=== PATIENT | female | born 1970 | race Caucasian/White ===

== ENCOUNTER 2024-02-04 19:25 | Emergency (ER) | payer BC, SELFPAY ==
[2024-02-04 19:26] VITALS: BP 136/101; PULSE 120; RESP 18; TEMP 37.1; O2SAT 98; BMI 27.4
--- NOTE | 2024-02-04 19:34 | ED_ITS ---
<Statement entered by Didi Wang MD - 02/04/24 22:41> I was consulted by the BRONSON, and we discussed the complexity of the problems being addressed. I approved the treatment and management plan for this patient's care in the emergency department, thus performing a substantive portion of the medical decision making. Didi Wang MD, SHAHBAZ, FACEP Discharge Plan Disposition Patient Disposition: Home, Self-Care Condition: Good Referrals Follow up/Referrals: Provider,Referral, [Primary Care Provider] - See instructions Activity Restrictions/Add. Instructions Additional Instructions/Restrictions: Please take Pepcid twice a day as needed for symptoms. Please follow-up closely with your primary care and call to make an appointment in the a.m. Return to the emergency department as needed for any worsening or change in your symptoms. Clinical Impressions Clinical Impression: Abdominal pain, acute, epigastric Instructions Patient Instructions: DI for Acute Abdominal Pain Discharge ED Provider: Didi Wang General Adult HPI General Chief complaint: Abdominal Pain Stated complaint: diarrhea, abd pain Time Seen by Provider: 02/04/24 19:33 History of Present Illness HPI narrative: Patient presents with 48 hours of acute epigastric abdominal pain. Patient denies vomiting fever chills hemoptysis hematochezia melena hematemesis hematuria chest pain or shortness of breath. Patient denies difficulty tolerating or taking p.o. but reports decreased appetite. 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 Patient is also had a cholecystectomy and a total abdominal hysterectomy. Related Data Allergies Allergy/AdvReac Type Severity Reaction Status Date / Time No Known Allergies Allergy Verified 02/04/24 19:49 [facility] Disclaimer: The information contained in this section may have been updated after the patient was seen, as this information can be updated by other users. Social History Smoking Status: Current every day smoker alcohol intake: never current occupational status: employed Travel in the last 8 weeks: Inside the [place] ROS Obtained: Yes Systems reviewed as appropriate & no additional complaints except as documented Physical Exam General General appearance: alert and in no apparent distress Eye Eye exam: Present normal appearance, PERRL and EOMI; Absent scleral icterus ENT ENT exam: Present normal exam and mucous membranes moist Chest Chest inspection: Present normal inspection and symmetric chest wall rise Respiratory Respiratory exam: Present normal lung sounds bilaterally; Absent respiratory distress or accessory muscle use Cardiovascular Cardiovascular exam: Present normal rhythm, tachycardia, normal heart sounds, +S1 and +S2 Abdominal Exam Abdominal exam: Present soft, tenderness and normal bowel sounds; Absent guarding, rebound or rigidity Abdominal tenderness: Present epigastrium Extremities Exam Extremities exam: Present normal inspection and full ROM Back Exam Back exam: Present normal inspection and full ROM Neurological Exam Neurological exam: Present alert and oriented X3 Psychiatric Psychiatric exam: Present normal affect and normal mood Skin Skin exam: Present warm, dry and normal color Medical Decision Making Medical Records Medical records reviewed: Yes I reviewed the patient's medical records. Carlos Inquiry Pt receiving controlled substance: No Vital Signs: 02/04/24 19:26 Temperature 98.7 F Temperature Source Oral Pulse Rate [Left] 120 H Respiratory Rate 18 Blood Pressure [Right Arm] 136/101 H Blood Pressure Mean [Right Arm] 112 Blood Pressure Source [Right Arm] Automatic Cuff Blood Pressure Position [Right Arm] Sitting 02 Sat by Pulse Oximetry 98 Oxygen Delivery Method Room Air Lab Data Lab results reviewed: Yes I reviewed the patient's lab results. Lab Results 02/04/24 19:35: WBC 5.9, RBC 4.90, Hgb 14.2, Hct 43.4, MCV 88.5, MCH 29.1, MCHC 32.9, RDW 13.5, Plt Count 141 L, MPV 10.6 H, Neut % (Auto) 41.0, Lymph % (Auto) 54.6 H, [place] % (Auto) 3.9, Eos % (Auto) 0.5, Baso % (Auto) 6.5 H, Neut # (Auto) 2.4, Lymph # (Auto) 3.2, [place] # (Auto) 0.2, Eos # (Auto) 0.0, Baso # (Auto) 0.4 H, Total Counted 100, Neutrophils % (Manual) 42, Lymphocytes % (Manual) 49, Atypical Lymphs % 8.0, Monocytes % (Manual) 1 L, Platelet Estimate Slight decrease, RBC Morphology Normal, PT 10.9, INR 1.01, Sodium 136, Potassium 4.4, Chloride 104, Carbon Dioxide 27, Anion Gap 9.4, BUN 10, Creatinine 0.80, Estimated Creat Clear 100, Estimated GFR 75, Est GFR ( Amer) 91, Glucose 105 H, Calcium 9.9, Magnesium 2.1, Total Bilirubin 0.8, AST 51 H, ALT 43, Alkaline Phosphatase 107, Total Protein 7.1, Albumin 4.0, Globulin 3.1, Albumin/Globulin Ratio 1.3, Lipase 144 02/04/24 19:35 02/04/24 19:35 Orders (Tests/Meds): ED MEDICATIONS Generic Name Dose Route Start Last Admin Trade Name Freq PRN Reason Stop Dose Admin Sodium Chloride 10 ml 02/04/24 20:22 02/04/24 20:24 Sodium Chloride 0.9% 10ml Syr (Rad Only) IV 03/05/24 20:21 10 ml NEEDED PRN Administration Maintain IV Site Discontinued Medications Generic Name Dose Route Start Last Admin Trade Name Freq PRN Reason Stop Dose Admin Acetaminophen 1,000 mg 02/04/24 19:45 02/04/24 19:52 Acetaminophen 1,000mg/100ml Vial IV 02/04/24 19:46 1,000 mg ONCE ONE Administration Belladonna Alkaloids 60 ml 02/04/24 20:39 02/04/24 20:50 Belladonna Alkaloids 60 Ml Ml PO 02/04/24 20:40 60 ml ONCE ONE Administration Lactated Ringer's 1,000 mls @ 999 mls/hr 02/04/24 19:45 02/04/24 19:52 Lactated Ringer's 1000 Ml Bag IV 02/04/24 20:45 999 mls/hr .Q1H1M ONE Administration Iopamidol 75 ml 02/04/24 20:22 02/04/24 20:24 Iopamidol-370 (76%);100ml Bottle IV 02/04/24 20:23 75 ml ONCE ONE Administration Ketorolac Tromethamine 15 mg 02/04/24 19:45 02/04/24 19:52 Ketorolac 30mg/Ml Vial IV 02/04/24 19:46 15 mg ONCE ONE Administration ORDERS Category Date Time Status CT abdomen pelvis w con Stat Cat Scan 02/04/24 19:45 Completed CBC w/Auto Diff [Complete Blood Count Auto Diff] Stat Lab 02/04/24 19:35 Completed CMP [Comprehensive Metabolic Panel] Stat Lab 02/04/24 19:35 Completed INR [Prothrombin Time INR] Stat Lab 02/04/24 19:35 Completed Lactic Acid Stat Lab 02/04/24 19:46 Ordered Lipase Stat Lab 02/04/24 19:35 Completed Magnesium Stat Lab 02/04/24 19:35 Completed Medical Decision Narrative: In summary patient is a 84-year-old female who presents to the emergency department for evaluation of acute epigastric abdominal pain. Patient is normotensive tachycardic satting at 98% on room air upon arrival, and afebrile. Physical exam is remarkable for acute exquisite epigastric abdominal pain to palpation without any palpable masses. Patient has normal active bowel sounds. Differential diagnosis includes ulcer versus GERD versus obstruction versus acute pancreatitis [place]. Initial workup will be conducted with hematologic labs CT scan abdomen pelvis. Initial interventions include Toradol Tylenol and fluid bolus. Initial workup reviewed by me shows that her hematologic labs are completely normal including a normal white count with no shift and negative/normal lipase and the remainder of her labs were nonactionable. My informal review of her CT scan abdomen pelvis with IV contrast shows no acute processes including stomach thickening bowel thickening or free air with radiologist read pending. Upon repeat evaluation patient reports moderate improvement after Toradol Tylenol crystalloid bolus GI cocktail and immediate release 1 dose of oxycodone.. Given this via shared decision making I discussed with the patient about her ability for close follow-up as an outpatient. Patient verbalized that she does have the ability to follow-up closely both locally and her home-based [place]. She was agreeable for that option and ultimately we decided for her to be discharged with her to continue taking [id number] Pepcid. Critical Care Critical Care Time Critical Care Time: No
--- NOTE | 2024-02-04 19:45 | CT_ITS ---
PROCEDURE INFORMATION: Exam: CT Abdomen And Pelvis With Contrast Exam date and time: 02/04/2024 8:08 PM Age: 54 years old Clinical indication: Abdominal pain; Epigastric; Additional info: Acute epigastric abdominal pain TECHNIQUE: Imaging protocol: Computed tomography of the abdomen and pelvis with contrast. Radiation optimization: All CT scans at this facility use at least one of these dose optimization techniques: automated exposure control; mA and/or kV adjustment per patient size (includes targeted exams where dose is matched to clinical indication); or iterative reconstruction. Contrast material: ISOVUE; Contrast volume: 75 ml; Contrast route: IV; COMPARISON: No relevant prior studies available. FINDINGS: Diaphragm: Small hiatal hernia. Liver: Hepatomegaly. No mass. Gallbladder and bile ducts: Cholecystectomy. Pancreas: Normal. No ductal dilation. Spleen: Splenomegaly. Adrenal glands: Normal. No mass. Kidneys and ureters: Normal. No hydronephrosis. Stomach and bowel: Total colectomy. No obstruction. No mucosal thickening. Appendix: Surgically absent. Intraperitoneal space: Unremarkable. No free air. No significant fluid collection. Vasculature: Mild atherosclerosis. No abdominal aortic aneurysm. Lymph nodes: Unremarkable. No enlarged lymph nodes. Urinary bladder: Unremarkable as visualized. Reproductive: Hysterectomy. Bones/joints: Mild levoconvex curvature of the lumbar spine. Degenerative changes. No acute fracture. Soft tissues: Unremarkable. IMPRESSION: No acute findings.
[2024-02-04] MEDS: ACETAMINOPHEN 1,000MG/100ML VIAL 1000 MG IV (19:52)
[2024-02-04] MEDS: LACTATED RINGERS 1000ML 1,000 ML 999 ML IV (19:52)
[2024-02-04] MEDS: KETOROLAC 30MG/ML VIAL 15 MG IV (19:52)
[2024-02-04 19:53] LABS: Basophils # 0.4 K/mm3 (0-0.2); Basophils % 6.5 % (0.1-2.0); Eosinophils % 0.5 % (0.1-12.0); Hematocrit 43.4 % (37.0-47.0); Hemoglobin 14.2 g/dL (12.2-16.2); Lymphocytes # 3.2 K/mm3 (0.7-4.5); Lymphocytes % 54.6 % (10-50); Mean Corpuscular HGB Conc 32.9 g/dL (31.8-35.4); Mean Corpuscular Hemoglobin 29.1 pg (27.0-31.2); Mean Corpuscular Volume 88.5 fl (81-99); Mean Platelet Volume 10.6 fl (7.4-10.4); Monocytes # 0.2 K/mm3 (0.1-1.0); Monocytes % 3.9 % (1.7-9.3); Neutrophils # 2.4 K/mm3 (1.8-7.8); Platelet Count 141 K/mm3 (142-424); Red Cell Distribution Width 13.5 % (11.5-17.5); White Blood Count 5.9 K/mm3 (4.8-10.8)
[2024-02-04 19:54] LABS: Chloride 104 mmol/L (98-107); Potassium 4.4 mmoL/L (3.5-5.1); Sodium 136 mmol/L (136-145)
[2024-02-04 19:56] LABS: MANUAL DIFFERENTIAL MANUAL DIFFERENTIAL (MANUAL DIFF)
[2024-02-04 19:57] LABS: Alanine Aminotransferase 43 U/L (12-78); Albumin/Globulin Ratio 1.3 (1.1-1.8); Alkaline Phosphatase 107 U/L (38-126); Anion Gap 9.4 mEq/L (5-15); Aspartate Amino Transferase 51 U/L (14-36); Bilirubin,Total 0.8 mg/dl (0.2-1.3); Blood Urea Nitrogen 10 mg/dl (7-17); Calcium 9.9 mg/dl (8.4-10.2); Carbon Dioxide 27 mmol/L (22.0-30.0); Creatinine Clearance Estimated 100 mL/min (50-200); Estimated Glomerular Filt Rate 75 ml/min (>60); GFR (African American) 91 ML/MIN (>60); Globulin 3.1 g/dL (1.3-3.2); Glucose 105 mg/dl (74-100); Lipase 144 U/L (23-300); Total Protein,Serum 7.1 g/dl (6.3-8.2)
[2024-02-04 19:58] LABS: Magnesium 2.1 mg/dl (1.6-2.3)
[2024-02-04 19:59] LABS: INR 1.01 (0.9-1.1); Prothrombin Time 10.9 seconds (10.1-12.5)
[2024-02-04] MEDS: IOPAMIDOL-370 (76%);100ML BOTTLE 75 ML IV (20:24)
[2024-02-04] MEDS: SODIUM CHLORIDE 0.9% 10ML SYR (RAD ONLY) 10 ML IV (20:24)
[2024-02-04 20:43] LABS: Lymphocytes % 49 % (10-50); Monocytes % 1 % (2-9); Neutrophils % 42 % (42-76); Platelet Estimate Slight Decrease; RBC Morphology Normal; Total Cells Counted 100
[2024-02-04] MEDS: BELLADONNA ALKALOIDS 60 ML ML PO (20:50)
[2024-02-04 21:21] VITALS: BP 137/81; PULSE 97; RESP 18; TEMP 37.1; O2SAT 98
== END 2024-02-04 21:22 | disposition home or self-care (01) ==
PROVIDERS: Physician Assistant; Emergency Provider Student in an Organized Health Care Education/Training Program
DX: R10.13 Epigastric pain (principal); F17.210 Nicotine dependence, cigarettes, uncomplicated
CPT/HCPCS: 74177; 80053; 83690; 83735; 85007; 85025; 85610; 96361; 96374; 96375; 99284; J0131; Q9967

== ENCOUNTER 2025-03-10 22:04 | Emergency (ER) | payer BC, SELFPAY ==
--- OUTSIDE RECORDS SUMMARY | 2025-03-10 22:13 | XMS_ITS | Data Portability ---
Author Organization [place] - [facility], [facility] Address [address] 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 Active problems, PMH, Surgical History, Family History, Social History, Behavioral Health, Current Meds, and Allergies were reviewed and updated as clinically indicated. Discussed risk factors and provided referrals to educational and counseling services as appropriate. Not available 05/15/2024 09:14:13 Plan of Treatment Reminders Order Date Submit Date Provider Last Modified By Organization Details Last Modified Time Details Appointments EXAM ANNUAL, W/FASTING LABS-30 2024 08:15A Alexi MCRAE, DO Not available Not available Not available Lab general health panel 2023 024 [facility], [address], [address], [place], [address], 05/15/2024 14:19:15 lipid panel, serum 2023 024 [facility], [address], [address], [place], [address], 05/15/2024 14:56:59 urinalysi s, dipstick 2023 024 [facility], [address] [facility], [address], [place], [address], 05/15/2024 10:49:32 vitamin D, 25-hydrox y, total, serum 2023 024 [facility], [address], [address], [place], [address], 05/15/2024 14:57:18 T4, free, serum 2023 024 [facility], [address], [address], [place], [address], 05/15/2024 14:57:08 gamma-glu tamyl transfera se (ggt), serum 2023 024 [facility], [address], [address], [place], [address], 05/15/2024 14:57:26 C reactive protein, QN, serum or plasma 2023 024 [facility], [address], [address], [place], [address], 05/15/2024 14:57:32 ferritin, serum or plasma 2023 024 [facility], [address], [address], [place], [address], 05/15/2024 14:57:41 vitamin B12, quant, blood 2023 024 [facility], [address], [address], [place], [address], 05/15/2024 14:57:12 CMP, serum or plasma 2023 024 [facility], [address], [address], [place], [address], 02/12/2024 14:20:49 CBC w/ auto diff 2023 024 [facility], [address], [address], [place], [address], 02/12/2024 13:46:04 lipase, serum or plasma 2023 024 [facility], [address], [address], [place], [address], 02/12/2024 14:20:51 amylase, serum or plasma 2023 024 [facility], [address], [address], [place], [address], 02/12/2024 14:20:50 urinalysi s, dipstick 2023 024 [facility], [address] [facility], [facility], [place], [address], 02/12/2024 14:13:45 unlisted lab - helicobac ter pylori panel 2023 024 [facility], [address], [address], [place], [address], 02/14/2024 17:43:12 T4, free, serum 2023 024 [facility], [address], [address], [place], [address], 02/12/2024 14:20:56 TSH, serum or plasma 2023 024 [facility], [address], [address], [place], [address], 02/12/2024 14:20:53 T3, free, serum or plasma 2023 024 [facility], [address], [address], [place], [address], 02/12/2024 14:21:01 CBC w/ auto diff 2022 023 [facility], [address], [address], [place], [address], 08/28/2023 19:55:37 CMP, serum or plasma 2022 023 [facility], [address], [address], [place], [address], 08/28/2023 23:01:04 TSH, serum or plasma 2022 023 [facility], [address], [address], [place], [address], 08/28/2023 23:01:07 T4, free, serum 2022 023 [facility], [address], [address], [place], [address], 08/28/2023 23:01:10 T3, free, serum or plasma 2022 023 [facility], [address], [address], [place], [address], 08/28/2023 23:01:14 general health panel 2021 022 [facility], [address], [address], [place], [address], 05/25/2022 14:28:47 lipid panel w/ direct LDL, serum 2021 022 [facility], [address], [address], [place], [address], 05/25/2022 14:28:56 FSH (follicle -stimulat ing hormone), serum 2020 021 [facility], [address], [address], [place], [address], 04/05/2021 21:12:00 estradiol , serum 2020 021 [facility], [address], [address], [place], [address], 04/05/2021 21:12:12 urinalysi s, dipstick [email or web address], [address] [facility], [address], [place], [address], 04/05/2021 17:14:30 TSH, serum or plasma 2020 021 [facility], [address], [address], [place], [address], 04/05/2021 21:11:48 T4, free, serum 2020 021 [facility], [address], [address], [place], [address], 04/05/2021 21:11:49 CMP, serum or plasma 2020 021 [facility], [address], [address], [place], [address], 04/05/2021 21:11:58 erythrocy te sedimenta tion rate, QN, blood 2020 021 [facility], [address], [address], [place], [address], 04/05/2021 19:25:21 CBC w/ auto diff 2020 021 [facility], [address], [address], [place], [address], 04/05/2021 19:59:19 Referral gastroent erologist referral - Please advise pt of his/her appointme nt.Please fax appt info to Jhoana at [phone] you have any questions regarding this order/ref erral, please call ext [phone] RACHELLE Alfonso MD, [address], [address], [place], [address], 07/05/2024 10:58:58 Procedures None recorded. Surgeries None recorded. Imaging MRI, lumbar spine, w/o contrast - She would like to pay for this lainez and not run through insurance .Please advise pt of his/her appointme nt.Please fax appt info to Johana at [phone] you have any questions regarding this order/ref erral, please call ext [phone] [facility], [address], [address], [place], [address], 07/11/2024 09:28:20 DEXA, axial skeleton 2023 024 [facility], [address], [address], [place], [address], 07/15/2024 16:15:41 LDCT, chest, for lung cancer screening - Please advise pt of his/her appointme nt.Please fax appt info to Johana at [phone] you have any questions regarding this order/ref erral, please call ext [phone] [facility], [address], [address], [place], [address], 07/11/2024 10:30:29 XR, lumbar spine, 2 view - Persisten t low back pain for weeks. 2022 023 [email or web address] [facility] - Scheduling Only, [address], [place], [address], 09/11/2023 11:36:01 Medication Orders pantopraz ole 20 mg tablet,de layed release 2023 024 [facility] #[id number], [address] [place] [address], [id number], 02/15/2024 09:02:42 levothyro xine 50 mcg tablet 2023 024 [facility] #18382, [address] [place] [address], [id number], 02/12/2024 10:49:02 propranol ol 10 mg tablet 2022 023 [facility] #53744, [address] [place] [address], [id number], 08/29/2023 06:25:52 baclofen 10 mg tablet 2022 023 [facility], [address] [place] [address], [id number], 08/28/2023 16:50:30 diclofena c sodium 75 mg tablet,de layed release 2022 023 [facility], [address] [place] [address], [id number], 08/28/2023 16:50:24 valacyclo vir 1 gram tablet 2021 022 Not available 05/25/2022 08:47:34 levothyro xine 50 mcg tablet 2021 022 Not available 05/25/2022 08:47:34 cyclobenz aprine 10 mg tablet 2020 021 [email or web address] #70557, [address], [place], [id number], 05/25/2022 08:11:29 Patient TargetsNo targets recorded. Patient Instructions Encounter Date Encounter Id Patient Instructions Last Modified By Organization Details Last Modified Time 02/12/2024 [id number] medical record request* - please send CT imaging report. Not available 03/12/2024 15:18:54 05/15/2024 [id number] Education was provided on healthy nutrition, including a diet rich in fruits and vegetables, minimizing simple carbohydrates, salt, and saturated fats. Encouraged regular cardiovascular exercise such as walking at least 30 minutes daily, 5 times per week. Emphasized preventive health measures and community-based lifestyle interventions to help reduce health risks and promote healthy living. Schedule next annual exam in 1 year. 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 16 mm/HR 0-20 normal Not Available [facility] [address], [place], [address], 04/05/2021 19:25:21 04/05/20 21 04/05/2021 CBC w/ auto diff WBC. 7.8 K/uL 3.8-11 .0 normal Not Available [facility] [address], [place], [address], 04/05/2021 19:59:19 04/05/20 21 04/05/2021 CBC w/ auto diff ne%. 51.9 % 43.9-7 8.2 normal Not Available [facility] [address] [place] [address] Rd [address], [place], [address], 04/05/2021 19:59:19 04/05/20 21 04/05/2021 CBC w/ auto diff ly%. 39.7 % 13.4-4 3.9 normal Not Available [facility] [address] [place] [address] Rd [address], [place], [address], 04/05/2021 19:59:19 04/05/20 21 04/05/2021 CBC w/ auto diff MO%. 6.5 % 4.9-12 .1 normal Not Available [facility] [address] [place] [address] Rd [address], [place], [address], 04/05/2021 19:59:19 04/05/20 21 04/05/2021 CBC w/ auto diff eo%. 1.1 % 0.3-5. 1 normal Not Available [facility] [address] [place] [address] [address], [place], [address], 04/05/2021 19:59:19 04/05/20 21 04/05/2021 CBC w/ auto diff ba%. 0.8 % 0.0-1. 6 normal Not Available [facility] [address] [place] [address] [address], [place], [address], 04/05/2021 19:59:19 04/05/20 21 04/05/2021 CBC w/ auto diff ne#. 4.0 K/uL 1.6-8. 6 normal Not Available [facility] [address] [place] [address] [address], [place], [address], 04/05/2021 19:59:19 04/05/20 21 04/05/2021 CBC w/ auto diff ly#. 3.1 K/uL 0.4-4. 8 normal Not Available [facility] [address], [place], [address], 04/05/2021 19:59:19 04/05/20 21 04/05/2021 CBC w/ auto diff MO#. 0.5 K/uL 0.2-1. 3 normal Not Available [facility] [address], [place], [address], 04/05/2021 19:59:19 04/05/20 21 04/05/2021 CBC w/ auto diff eo#. 0.1 K/uL 0.0-0. 6 normal Not Available [facility] [address], [place], [address], 04/05/2021 19:59:19 04/05/20 21 04/05/2021 CBC w/ auto diff ba#. 0.1 K/uL 0.0-0. 2 normal Not Available [facility] [address], [place], [address], 04/05/2021 19:59:19 04/05/20 21 04/05/2021 CBC w/ auto diff RBC. 5.04 M/uL 3.74-5 .11 normal Not Available [facility] [address], [place], [address], 04/05/2021 19:59:19 04/05/20 21 04/05/2021 CBC w/ auto diff HGB. 14.5 g/dL 12.0-1 5.3 normal Not Available [facility] [address] [place] [address] [address], [place], [address], 04/05/2021 19:59:19 04/05/20 21 04/05/2021 CBC w/ auto diff HCT. 43.5 % 34.4-4 4.8 normal Not Available [facility] [address], [place], [address], 04/05/2021 19:59:19 04/05/20 21 04/05/2021 CBC w/ auto diff MCV. 86 fL 82-99 normal Not Available [facility] [address], [place], [address], 04/05/2021 19:59:19 04/05/20 21 04/05/2021 CBC w/ auto diff MCH. 29 pg 28-34 normal Not Available [facility] [address] [facility] [address], [place], [address], 04/05/2021 19:59:19 04/05/20 21 04/05/2021 CBC w/ auto diff MCHC. 33 g/dL 33-36 normal Not Available [facility] [address], [place], [address], 04/05/2021 19:59:19 04/05/20 21 04/05/2021 CBC w/ auto diff RDW. 13.5 % 12.0-1 5.2 normal Not Available [facility] [address], [place], [address], 04/05/2021 19:59:19 04/05/20 21 04/05/2021 CBC w/ auto diff plt. 188 K/uL 140-40 0 normal Not Available [facility] [address] [facility], [place], [address], 04/05/2021 19:59:19 04/05/20 21 04/05/2021 TSH, serum or plasm a TSH 2.689 uIU/m L 0.340- 4.200 normal Accor ding to the Ameri can Assoc iatio n of Clini maddi Endoc rinol ogist s (AACE ) and other s, a TSH refer ence inter yuri of 0.3 - 3.0 uIU/m L is recom liseth d as repea roberto level s above 3.0 may be indic ative of early stage s of hypot hyroi dism. For more infor matio n refer to the [facility] artic le Clin ical Impli catio ns of the New TSH Refer ence Range which is locat ed on the [facility] Intra net under Centr al Lab - Lab Docum ents. Not Available [facility] [address], [place], [address], 04/05/2021 21:11:48 04/05/20 21 04/05/2021 T4, free, serum T4 free 1.09 NG/dL 0.58-1 .70 normal Not Available [facility] [address], [place], [address], 04/05/2021 21:11:49 04/05/20 21 04/05/2021 CMP, serum or plasm a glu 82 mg/dL 70-100 normal Not Available [facility] [address], [place], [address], 04/05/2021 21:11:58 04/05/20 21 04/05/2021 CMP, serum or plasm a Na 141 mmol/ L 134-14 3 normal Not Available [facility] [address], [place], [address], 04/05/2021 21:11:58 04/05/20 21 04/05/2021 CMP, serum or plasm a K 4.8 mmol/ L 3.5-5. 2 normal Not Available [facility] [address], [place], [address], 04/05/2021 21:11:58 04/05/20 21 04/05/2021 CMP, serum or plasm a cL 104 mmol/ L 95-108 normal Not Available [facility] [address] [place] [address] [address], [place], [address], 04/05/2021 21:11:58 04/05/20 21 04/05/2021 CMP, serum or plasm a CO2 27 mmol/ L 22-32 normal Not Available [facility] [address] [place] [address] [address], [place], [address], 04/05/2021 21:11:58 04/05/20 21 04/05/2021 CMP, serum or plasm a Ca 10.0 mg/dL 8.9-10 .5 normal Not Available [facility] [address] [place] [address] [address] [facility], [place], [address], 04/05/2021 21:11:58 04/05/20 21 04/05/2021 CMP, serum or plasm a Ca corrected for alb 9.7 mg/dL 8.9-10 .5 normal Not Available [facility] [address] [place] [address], [place], [address], 04/05/2021 21:11:58 04/05/20 21 04/05/2021 CMP, serum or plasm a BUN 9 mg/dL 6-25 normal Not Available [facility] [address] [place] [address], [place], [address], 04/05/2021 21:11:58 04/05/20 21 04/05/2021 CMP, serum or plasm a creat 0.92 mg/dL 0.58-1 .04 normal Not Available [facility] [address] [place] [address] [address], [place], [address], 04/05/2021 21:11:58 04/05/20 21 04/05/2021 CMP, serum or plasm a tpro 6.9 g/dL 5.9-7. 9 normal Not Available [facility] [address] [facility] [address], [place], [address], 04/05/2021 21:11:58 04/05/20 21 04/05/2021 CMP, serum or plasm a alb 4.4 g/dL 3.4-5. 3 normal Not Available [facility] [address] [facility], [place], [address], 04/05/2021 21:11:58 04/05/20 21 04/05/2021 CMP, serum or plasm a A/G ratio 1.8 g/dL 1.0-2. 5 normal Not Available [facility] [address], [place], [address], 04/05/2021 21:11:58 04/05/20 21 04/05/2021 CMP, serum or plasm a bili, tot 0.6 mg/dL 0.3-1. 2 normal Not Available [facility] [address], [place], [address], 04/05/2021 21:11:58 04/05/20 21 04/05/2021 CMP, serum or plasm a alk phos 83 IU/L 33-130 normal Not Available [facility] [address] [facility] [address], [place], [address], 04/05/2021 21:11:58 04/05/20 21 04/05/2021 CMP, serum or plasm a AST 16 IU/L 10-42 normal Not Available [facility] [address] [facility] [address], [place], [address], 04/05/2021 21:11:58 04/05/20 21 04/05/2021 CMP, serum or plasm a ALT 15 IU/L 7-52 normal Not Available [facility] [address] [facility] [address], [place], [address], 04/05/2021 21:11:58 04/05/20 21 04/05/2021 CMP, serum or plasm a eGFR > 60 mL/mi n/1.7 3m^2 > 60 mL/min /1.73m ^2 normal Not Available [facility] [address], [place], [address], 04/05/2021 21:11:58 04/05/20 21 04/05/2021 CMP, serum or plasm a eGFR, > 60 mL/mi n/1.7 3m^2 > 60 mL/min /1.73m ^2 normal Not Available [facility] [address], [place], [address], 04/05/2021 21:11:58 04/05/20 21 04/05/2021 FSH (foll icle- stimu latin g hormo ne), serum FSH 57.4 mIU/m L FSH Exten ded Refer ence Range s in mIU/m L ----- ----- ----- ----- ----- ----- ----- --- Male 1.3 - 19.3 Folli cular phase 3.9 - 8.8 Midcy anh peak 4.5 - 22.5 Lutea l phase 1.8 - 5.1 Post Menop ausal 16.7 - 113.6 Not Available [facility] [address], [place], [address], 04/05/2021 21:12:00 04/05/20 21 04/05/2021 estra diol, serum estradiol sensitive 29 pg/mL Estra diol Sensi tive Exten ded Refer ence Range s in pg/mL ----- ----- ----- ----- ----- ----- ----- ----- ----- ----- ---- Male >= 19 <15.0 - 31.5 Femal e Post Menop ausal <15.0 - 25.1 Early Folli cular 22.4 - 115 Mid-F ollic ular 25.0 - 115 Mid-L uteal 36.5 - 246 Ramonita- Ovult ry 32.1 - 517 Pedia tric Pedia tric( male and femal e age 0 to <1) <15.0 - 38.2 Pre-P ubert y femal e(1 to <12) <15.0 - 16.0 Puber ty femal e(12 to <19) 36.5 - 196 Pre-P ubert y male( 1 to <12) <15.0 Puber ty male( 12 to <19) 19.5 - 34.8 Not Available [facility] [address] [facility] [address], [place], [address], 04/05/2021 21:12:12 04/05/20 21 04/05/2021 urina lysis , dipst ick Color (reference range: clear-yellow ) yellow Not Available [address] [address], [place], [address], 04/05/2021 15:32:39 04/05/20 21 04/05/2021 urina lysis , dipst ick Clarity (reference range: clear) clear Not Available [address] [address], [place], [address], 04/05/2021 15:32:39 04/05/20 21 04/05/2021 urina lysis , dipst ick Glucose (reference range: negative) negati ve Not Available [address], [address], 04/05/2021 15:32:39 04/05/20 21 04/05/2021 urina lysis , dipst ick Bilirubin (reference range: negative) negati ve Not Available [address], [address], 04/05/2021 15:32:39 04/05/2004/05/2021 urina lysis , dipst ick Ketone (reference range: negative) negati ve Not Available [address], [place], [address], 04/05/2021 15:32:39 04/05/2004/05/2021 urina lysis , dipst ick Specific [place] (reference range: 1.000-1.035) >=1.03 0 Not Available [address], [place], [address], 04/05/2021 15:32:39 04/05/2004/05/2021 urina lysis , dipst ick pH (reference range: 5.0-10.) 5.5 Not Available [address], [place], [address], 04/05/2021 15:32:39 04/05/2004/05/2021 urina lysis , dipst ick Protein (reference range: -trace) negati ve Not Available [address], [place], [address], 04/05/2021 15:32:39 04/05/2004/05/2021 urina lysis , dipst ick Urobilinogen (reference range: 0.2-1) 0.2 Not Available [address], [place], [address], 04/05/2021 15:32:39 04/05/2004/05/2021 urina lysis , dipst ick Nitrite (reference range: negati ve Not Available [address], [place], [address], 04/05/2021 15:32:39 04/05/20 21 04/05/2021 urina lysis , dipst ick Blood (reference range: negative) negati ve Not Available [address], [place], [address], 04/05/2021 15:32:39 04/05/20 21 04/05/2021 urina lysis , dipst ick Leukocytes (reference range: negative) negati ve Not Available [address], [place], [address], 04/05/2021 15:32:39 04/05/20 21 04/05/2021 urina lysis , dipst ick Performed By CL Not Available [address], [place], [address], 04/05/2021 15:32:39 04/05/20 21 04/05/2021 urina lysis , dipst ick [employer] Not Available [address] [address], [place], [address], 04/05/2021 15:32:39 04/05/20 21 04/05/2021 urina lysis , dipst ick Lot Number [id number] Not Available [address] [address], [place], [place], [address], 04/05/2021 15:32:39 04/05/20 21 04/05/2021 urina lysis , dipst ick Expiration Date 2021 Not Available [address] [address], [place], [address], 04/05/2021 15:32:39 04/05/20 21 04/05/2021 urina lysis , dipst ick Date Opened 2020 Not Available [address] [address], [place], [address], 04/05/2021 15:32:39 05/25/20 22 05/25/2022 T[employer] WORKS GENER AL HEALT H PANEL [facility] general health panel result See Note See indiv idual tests for resul ts. Not Available [facility] [address] [place] [address] Rd [address], [place], [address], 05/25/2022 14:28:47 05/25/20 22 05/25/2022 COMP. METAB OLIC PANEL glu 91 mg/dL 70-100 normal Not Available [facility] [address] [place] [address] Rd [address], [place], [address], 05/25/2022 14:28:47 05/25/20 22 05/25/2022 COMP. METAB OLIC PANEL Na 142 mmol/ L 134-14 3 normal Not Available [facility] [address] [place] [address] Rd [address], [place], [address], 05/25/2022 14:28:47 05/25/20 22 05/25/2022 COMP. METAB OLIC PANEL K 4.6 mmol/ L 3.5-5. 2 normal Not Available [facility] [address] [place] [address] [address], [place], [address], 05/25/2022 14:28:47 05/25/20 22 05/25/2022 COMP. METAB OLIC PANEL cL 107 mmol/ L 95-108 normal Not Available [facility] [address] [facility] [address], [place], [address], 05/25/2022 14:28:47 05/25/20 22 05/25/2022 COMP. METAB OLIC PANEL CO2 28 mmol/ L 22-32 normal Not Available [facility] [address] [place] [address] [address], [place], [address], 05/25/2022 14:28:47 05/25/20 22 05/25/2022 COMP. METAB OLIC PANEL Ca 9.3 mg/dL 8.9-10 .5 normal Not Available [facility] [address] [facility] [facility] [address] [facility] [address], [place], [address], 05/25/2022 14:28:47 05/25/20 22 05/25/2022 COMP. METAB OLIC PANEL Ca corrected for alb 9.1 mg/dL 8.9-10 .5 normal Not Available [facility] [address] [place] [address] [address], [place], [address], 05/25/2022 14:28:47 05/25/20 22 05/25/2022 COMP. METAB OLIC PANEL BUN 13 mg/dL 6-25 normal Not Available [facility] [address] [place] [address] [address], [place], [address], 05/25/2022 14:28:47 05/25/20 22 05/25/2022 COMP. METAB OLIC PANEL creat 0.84 mg/dL 0.58-1 .04 normal Not Available [facility] [address] [place] [address] [address], [place], [address], 05/25/2022 14:28:47 05/25/20 22 05/25/2022 COMP. METAB OLIC PANEL tpro 6.7 g/dL 5.9-7. 9 normal Not Available [facility] [address] [place] [address] [address], [place], [address], 05/25/2022 14:28:47 05/25/20 22 05/25/2022 COMP. METAB OLIC PANEL alb 4.2 g/dL 3.4-5. 3 normal Not Available [facility] [address] [place] [address] [address], [place], [address], 05/25/2022 14:28:47 05/25/20 22 05/25/2022 COMP. METAB OLIC PANEL A/G ratio 1.7 g/dL 1.0-2. 5 normal Not Available [facility] [address], [place], [address], 05/25/2022 14:28:47 05/25/20 22 05/25/2022 COMP. METAB OLIC PANEL bili, tot 0.3 mg/dL 0.3-1. 2 normal Not Available [facility] [address] [facility] [address] [facility] [address], [place], [address], 05/25/2022 14:28:47 05/25/20 22 05/25/2022 COMP. METAB OLIC PANEL alk phos 91 IU/L 33-130 normal Not Available [facility] [address], [place], [address], 05/25/2022 14:28:47 05/25/20 22 05/25/2022 COMP. METAB OLIC PANEL AST 12 IU/L 10-42 normal Not Available [facility] [address] [facility] [address], [place], [address], 05/25/2022 14:28:47 05/25/20 22 05/25/2022 COMP. METAB OLIC PANEL ALT 8 IU/L 7-52 normal Not Available [facility] [address], [place], [address], 05/25/2022 14:28:47 05/25/20 22 05/25/2022 COMP. METAB OLIC PANEL egfrcr > 60 mL/mi n/1.7 3m^2 > 60 mL/min /1.73M ^2 normal The CKD-E PI 2020 equat ion has not been valid ated in pregn ant women . Not Available [facility] [address], [place], [address], 05/25/2022 14:28:47 05/25/20 22 05/25/2022 LIPID PANEL W/REF THOMAS TO DIREC T-LDL chol 193 mg/dL <200 normal Not Available [facility] [address], [place], [address], 05/25/2022 14:28:56 05/25/20 22 05/25/2022 LIPID PANEL W/REF THOMAS TO DIREC T-LDL trig 117 mg/dL <150 normal Not Available [facility] [address], [place], [address], 05/25/2022 14:28:56 05/25/20 22 05/25/2022 LIPID PANEL W/REF THOMAS TO DIREC T-LDL HDL 48 mg/dL 50-150 low Not Available [facility] [address], [place], [address], 05/25/2022 14:28:56 05/25/20 22 05/25/2022 LIPID PANEL W/REF THOMAS TO DIREC T-LDL LDLC 122 mg/dL <130 normal Not Available [facility] [address], [place], [address], 05/25/2022 14:28:56 05/25/20 22 05/25/2022 LIPID PANEL W/REF THOMAS TO DIREC T-LDL chol/HDL 4.0 ratio 0.0-4. 5 normal Not Available [facility] [address], [place], [address], 05/25/2022 14:28:56 05/25/20 22 05/25/2022 LIPID PANEL W/REF THOMAS TO DIREC T-LDL LDL/HDL 2.5 ratio 0.0-3. 0 normal Not Available [facility] [address] [facility] [address], [place], [address], 05/25/2022 14:28:56 05/25/20 22 05/25/2022 TSH TSH 1.944 uIU/m L 0.340- 4.200 normal Accor ding to the Ameri can Assoc iatio n of Clini maddi Endoc rinol ogist s (AACE ) and other s, a TSH refer ence inter yuri of 0.3 - 3.0 uIU/m L is recom liseth d as repea roberto level s above 3.0 may be indic ative of early stage s of hypot hyroi dism. For more infor matio n refer to the [facility] artic le Clin ical Impli catio ns of the New TSH Refer ence Range which is locat ed on the [facility] net under Cent[facility] al [facility] - For Physi kenneth and Other Provi ders Docum ents. Not Available [facility] [address], [place], [address], 05/25/2022 14:28:59 05/25/20 22 05/25/2022 CBC-A UTO DIFF WBC. 6.0 K/uL 3.8-11 .0 normal Not Available [facility] [address] [facility] [address], [place], [address], 05/25/2022 14:33:45 05/25/20 22 05/25/2022 CBC-A UTO DIFF ne%. 58.8 % 43.9-7 8.2 normal Not Available [facility] [address] [facility] [address], [place], [address], 05/25/2022 14:33:45 05/25/20 22 05/25/2022 CBC-A UTO DIFF ly%. 33.0 % 13.4-4 3.9 normal Not Available [facility] [address] [facility] [address], [place], [address], 05/25/2022 14:33:45 05/25/20 22 05/25/2022 CBC-A UTO DIFF MO%. 6.0 % 4.9-12 .1 normal Not Available [facility] [address] [facility] [address], [place], [address], 05/25/2022 14:33:45 05/25/20 22 05/25/2022 CBC-A UTO DIFF eo%. 1.4 % 0.3-5. 1 normal Not Available [facility] [address] [facility] [address] [facility] [address], [place], [address], 05/25/2022 14:33:45 05/25/20 22 05/25/2022 CBC-A UTO DIFF ba%. 0.8 % 0.0-1. 6 normal Not Available [facility] [address] [place] [address] [address], [place], [address], 05/25/2022 14:33:45 05/25/20 22 05/25/2022 CBC-A UTO DIFF ne#. 3.6 K/uL 1.6-8. 6 normal Not Available [facility] [address] [place] [address] [address], [place], [address], 05/25/2022 14:33:45 05/25/20 22 05/25/2022 CBC-A UTO DIFF ly#. 2.0 K/uL 0.4-4. 8 normal Not Available [facility] [address] [place] [address] [address], [place], [address], 05/25/2022 14:33:45 05/25/20 22 05/25/2022 CBC-A UTO DIFF MO#. 0.4 K/uL 0.2-1. 3 normal Not Available [facility] [address] [place] [address] [address], [place], [address], 05/25/2022 14:33:45 05/25/20 22 05/25/2022 CBC-A UTO DIFF eo#. 0.1 K/uL 0.0-0. 6 normal Not Available [facility] [address] [place] [address] [address] [facility] [address], [place], [address], 05/25/2022 14:33:45 05/25/20 22 05/25/2022 CBC-A UTO DIFF ba#. 0.0 K/uL 0.0-0. 2 normal Not Available [facility] [address] [facility] [address], [place], [address], 05/25/2022 14:33:45 05/25/20 22 05/25/2022 CBC-A UTO DIFF RBC. 4.86 M/uL 3.74-5 .11 normal Not Available [facility] [address] [facility] [address], [place], [address], 05/25/2022 14:33:45 05/25/20 22 05/25/2022 CBC-A UTO DIFF HGB. 14.0 g/dL 12.0-1 5.3 normal Not Available [facility] [address] [facility] [address], [place], [address], 05/25/2022 14:33:45 05/25/20 22 05/25/2022 CBC-A UTO DIFF HCT. 42.8 % 34.4-4 4.8 normal Not Available [facility] [address], [place], [address], 05/25/2022 14:33:45 05/25/20 22 05/25/2022 CBC-A UTO DIFF MCV. 88 fL 82-99 normal Not Available [facility] [address], [place], [address], 05/25/2022 14:33:45 05/25/20 22 05/25/2022 CBC-A UTO DIFF MCH. 29 pg 28-34 normal Not Available [facility] [address] [facility] [address], [place], [address], 05/25/2022 14:33:45 05/25/20 22 05/25/2022 CBC-A UTO DIFF MCHC. 33 g/dL 33-36 normal Not Available [facility] [address], [place], [address], 05/25/2022 14:33:45 05/25/20 22 05/25/2022 CBC-A UTO DIFF RDW. 13.8 % 12.0-1 5.2 normal Not Available [facility] [address] [facility] [address], [place], [address], 05/25/2022 14:33:45 05/25/20 22 05/25/2022 CBC-A UTO DIFF plt. 175 K/uL 140-40 0 normal Not Available [facility] [address] [facility] [address], [place], [address], 05/25/2022 14:33:45 08/28/20 23 08/28/2023 CBC-A UTO DIFF WBC 9.9 K/uL 3.8-11 .0 normal Not Available [facility] [address], [place], [address], 08/28/2023 19:55:37 08/28/20 23 08/28/2023 CBC-A UTO DIFF ne% 57.2 % 43.9-7 8.2 normal Not Available [facility] [address], [place], [address], 08/28/2023 19:55:37 08/28/20 23 08/28/2023 CBC-A UTO DIFF ly% 34.3 % 13.4-4 3.9 normal Not Available [facility] [address], [place], [address], 08/28/2023 19:55:37 08/28/20 23 08/28/2023 CBC-A UTO DIFF MO% 7.3 % 4.9-12 .1 normal Not Available [facility] [address] [facility] [address], [place], [address], 08/28/2023 19:55:37 08/28/2008/28/2023 CBC-A UTO DIFF eo% 0.5 % 0.3-5. 1 normal Not Available [facility] [address] [facility] [address], [place], [address], 08/28/2023 19:55:37 08/28/20 23 08/28/2023 CBC-A UTO DIFF ba% 0.7 % 0.0-1. 6 normal Not Available [facility] [address] [facility] [address] [facility], [place], [address], 08/28/2023 19:55:37 08/28/20 23 08/28/2023 CBC-A UTO DIFF ne# 5.6 K/uL 1.6-8. 6 normal Not Available [facility] [address] [place] [address] [address], [place], [address], 08/28/2023 19:55:37 08/28/2008/28/2023 CBC-A UTO DIFF ly# 3.4 K/uL 0.4-4. 8 normal Not Available [facility] [address] [place] [address] [address] [facility], [place], [address], 08/28/2023 19:55:37 08/28/20 23 08/28/2023 CBC-A UTO DIFF MO# 0.7 K/uL 0.2-1. 3 normal Not Available [facility] [address] [place] [address] [address] [facility], [place], [address], 08/28/2023 19:55:37 08/28/20 23 08/28/2023 CBC-A UTO DIFF eo# 0.1 K/uL 0.0-0. 6 normal Not Available [facility] [address] [place] [address] [address], [place], [address], 08/28/2023 19:55:37 08/28/20 23 08/28/2023 CBC-A UTO DIFF ba# 0.1 K/uL 0.0-0. 2 normal Not Available [facility] [address], [place], [address], 08/28/2023 19:55:37 08/28/20 23 08/28/2023 CBC-A UTO DIFF RBC 5.19 M/uL 3.74-5 .11 high Not Available [facility] [address] [facility] [address] [facility] [address], [place], [address], 08/28/2023 19:55:37 08/28/20 23 08/28/2023 CBC-A UTO DIFF HGB 15.3 g/dL 12.0-1 5.3 normal Not Available [facility] [address] [facility] [address] [facility] [address], [place], [address], 08/28/2023 19:55:37 08/28/20 23 08/28/2023 CBC-A UTO DIFF HCT 45.9 % 34.4-4 4.8 high Not Available [facility] [address] [facility] [address], [place], [address], 08/28/2023 19:55:37 08/28/20 23 08/28/2023 CBC-A UTO DIFF MCV 88 fL 82-99 normal Not Available [facility] [address] [facility] [address], [place], [address], 08/28/2023 19:55:37 08/28/20 23 08/28/2023 CBC-A UTO DIFF MCH 30 pg 28-34 normal Not Available [facility] [address], [place], [address], 08/28/2023 19:55:37 10/3008/28/2023 CBC-A UTO DIFF MCHC 33 g/dL 33-36 normal Not Available [facility] [address] [facility] [address], [place], [address], 08/28/2023 19:55:37 08/28/20 23 08/28/2023 CBC-A UTO DIFF RDW 14.1 % 12.0-1 5.2 normal Not Available [facility] [address] [facility] [address] [facility] [address], [place], [address], 08/28/2023 19:55:37 08/28/20 23 08/28/2023 CBC-A UTO DIFF plt 205 K/uL 140-40 0 normal Not Available [facility] [address] [place] [address] [address], [place], [address], 08/28/2023 19:55:37 08/28/20 23 08/28/2023 COMP. METAB OLIC PANEL glu 71 mg/dL 70-100 normal Not Available [facility] [address] [facility] [address] [facility] [address], [place], [address], 08/28/2023 23:01:04 08/28/20 23 08/28/2023 COMP. METAB OLIC PANEL Na 141 mmol/ L 134-14 3 normal Not Available [facility] [address] [place] [address] [address], [place], [address], 08/28/2023 23:01:04 08/28/20 23 08/28/2023 COMP. METAB OLIC PANEL K 4.8 mmol/ L 3.5-5. 2 normal Not Available [facility] [address] [facility] [address] [facility] [address], [place], [address], 08/28/2023 23:01:04 08/28/20 23 08/28/2023 COMP. METAB OLIC PANEL cL 104 mmol/ L 95-108 normal Not Available [facility] [address] [place] [address] [address], [place], [address], 08/28/2023 23:01:04 08/28/20 23 08/28/2023 COMP. METAB OLIC PANEL CO2 25 mmol/ L 22-32 normal Not Available [facility] [address] [facility] [address], [place], [address], 08/28/2023 23:01:04 08/28/20 23 08/28/2023 COMP. METAB OLIC PANEL Ca 9.8 mg/dL 8.9-10 .5 normal Not Available [facility] [address] [facility] [address], [place], [address], 08/28/2023 23:01:04 08/28/20 23 08/28/2023 COMP. METAB OLIC PANEL BUN 10 mg/dL 6-25 normal Not Available [facility] [address] [facility] [address], [place], [address], 08/28/2023 23:01:04 08/28/20 23 08/28/2023 COMP. METAB OLIC PANEL creat 0.91 mg/dL 0.58-1 .04 normal Not Available [facility] [address] [facility] [address], [place], [address], 08/28/2023 23:01:04 08/28/20 23 08/28/2023 COMP. METAB OLIC PANEL egfrcr 76 mL/mi n/1.7 3m^2 >60 normal The CKD-E PI 2020 equat ion has not been valid ated in pregn ant women . Not Available [facility] [address] [facility] [address], [place], [address], 08/28/2023 23:01:04 08/28/20 23 08/28/2023 COMP. METAB OLIC PANEL tpro 7.5 g/dL 5.9-7. 9 normal Not Available [facility] [address] [facility] [address], [place], [address], 08/28/2023 23:01:04 08/28/20 23 08/28/2023 COMP. METAB OLIC PANEL alb 4.7 g/dL 3.4-5. 3 normal Not Available [facility] [address] [facility] [address], [place], [address], 08/28/2023 23:01:04 08/28/20 23 08/28/2023 COMP. METAB OLIC PANEL A/G ratio 1.7 g/dL 1.0-2. 5 normal Not Available [facility] [address] [facility] [address], [place], [address], 08/28/2023 23:01:04 08/28/20 23 08/28/2023 COMP. METAB OLIC PANEL bili, tot 0.7 mg/dL 0.3-1. 2 normal Not Available [facility] [address] [facility] [address], [place], [address], 08/28/2023 23:01:04 08/28/20 23 08/28/2023 COMP. METAB OLIC PANEL alk phos 101 IU/L 33-130 normal Not Available [facility] [address] [facility] [address] [facility] [address], [place], [address], 08/28/2023 23:01:04 08/28/20 23 08/28/2023 COMP. METAB OLIC PANEL AST 14 IU/L 10-42 normal Not Available [facility] [address] [facility] [address], [place], [address], 08/28/2023 23:01:04 08/28/20 23 08/28/2023 COMP. METAB OLIC PANEL ALT 10 IU/L 7-52 normal Not Available [facility] [address] [place] [address] [address], [place], [address], 08/28/2023 23:01:04 08/28/20 23 08/28/2023 TSH TSH 2.470 uIU/m L 0.340- 4.200 normal Not Available [facility] [address] [facility] [address], [place], [address], 08/28/2023 23:01:07 08/28/20 23 08/28/2023 T4 FREE T4 free 1.08 NG/dL 0.58-1 .70 normal Not Available [facility] [address] [facility] [address], [place], [address], 08/28/2023 23:01:10 08/28/20 23 08/28/2023 T3, FREE T3, free 3.18 pg/mL 2.40-4 .40 normal Not Available [facility] [address] [facility] [address], [place], [address], 08/28/2023 23:01:14 02/12/20 24 02/12/2024 CBC-A UTO DIFF WBC. 6.2 K/uL 3.8-11 .0 normal Not Available [facility] [address] [address], [place], [address], 02/12/2024 13:46:03 02/12/20 24 02/12/2024 CBC-A UTO DIFF ne%. 27.9 % 43.9-7 8.2 low Not Available [facility] [address] [facility] [address], [place], [address], 02/12/2024 13:46:03 02/12/20 24 02/12/2024 CBC-A UTO DIFF ly%. 63.3 % 13.4-4 3.9 high Not Available [facility] [address] [facility] [address], [place], [address], 02/12/2024 13:46:03 02/12/20 24 02/12/2024 CBC-A UTO DIFF MO%. 7.2 % 4.9-12 .1 normal Not Available [facility] [address] [facility] [address], [place], [address], 02/12/2024 13:46:03 02/12/20 24 02/12/2024 CBC-A UTO DIFF eo%. 0.9 % 0.3-5. 1 normal Not Available [facility] [address] [place] [address] [address], [place], [address], 02/12/2024 13:46:03 02/12/20 24 02/12/2024 CBC-A UTO DIFF ba%. 0.7 % 0.0-1. 6 normal Not Available [facility] [address] [place] [address] [address], [place], [address], 02/12/2024 13:46:03 02/12/20 24 02/12/2024 CBC-A UTO DIFF ne#. 1.7 K/uL 1.6-8. 6 normal Not Available [facility] [address] [place] [address] [address], [place], [address], 02/12/2024 13:46:03 02/12/20 24 02/12/2024 CBC-A UTO DIFF ly#. 3.9 K/uL 0.4-4. 8 normal Not Available [facility] [address] [place] [address] [address], [place], [address], 02/12/2024 13:46:03 02/12/20 24 02/12/2024 CBC-A UTO DIFF MO#. 0.4 K/uL 0.2-1. 3 normal Not Available [facility] [address] [place] [address] [address], [place], [address], 02/12/2024 13:46:03 02/12/20 24 02/12/2024 CBC-A UTO DIFF eo#. 0.1 K/uL 0.0-0. 6 normal Not Available [facility] [address] [facility] [address], [place], [address], 02/12/2024 13:46:03 02/12/20 24 02/12/2024 CBC-A UTO DIFF ba#. 0.0 K/uL 0.0-0. 2 normal Not Available [facility] [address] [facility] [address], [place], [address], 02/12/2024 13:46:03 02/12/20 24 02/12/2024 CBC-A UTO DIFF RBC. 4.46 M/uL 3.74-5 .11 normal Not Available [facility] [address] [facility] [address], [place], [address], 02/12/2024 13:46:03 02/12/20 24 02/12/2024 CBC-A UTO DIFF HGB. 12.5 g/dL 12.0-1 5.3 normal Not Available [facility] [address] [facility] [address], [place], [address], 02/12/2024 13:46:03 02/12/20 24 02/12/2024 CBC-A UTO DIFF HCT. 37.9 % 34.4-4 4.8 normal Not Available [facility] [address] [facility] [address], [place], [address], 02/12/2024 13:46:03 02/12/20 24 02/12/2024 CBC-A UTO DIFF MCV. 85 fL 82-99 normal Not Available [facility] [address] [facility] [address], [place], [address], 02/12/2024 13:46:03 02/12/20 24 02/12/2024 CBC-A UTO DIFF MCH. 28 pg 28-34 normal Not Available [facility] [address], [place], [address], 02/12/2024 13:46:03 02/12/20 24 02/12/2024 CBC-A UTO DIFF MCHC. 33 g/dL 33-36 normal Not Available [facility] [address] [address], [place], [address], 02/12/2024 13:46:03 02/12/20 24 02/12/2024 CBC-A UTO DIFF RDW. 13.6 % 12.0-1 5.2 normal Not Available [facility] [address] [place] [address] Rd [address], [place], [address], 02/12/2024 13:46:03 02/12/20 24 02/12/2024 CBC-A UTO DIFF plt. 175 K/uL 140-40 0 normal Not Available [facility] [address] [place] [address] [address], [place], [address], 02/12/2024 13:46:03 02/12/20 24 02/12/2024 COMP. METAB OLIC PANEL glu 105 mg/dL 70-100 high Not Available [facility] [address] [facility] [address], [place], [address], 02/12/2024 14:20:49 02/12/20 24 02/12/2024 COMP. METAB OLIC PANEL Na 140 mmol/ L 134-14 3 normal Not Available [facility] [address] [place] [address] [address], [place], [address], 02/12/2024 14:20:49 02/12/20 24 02/12/2024 COMP. METAB OLIC PANEL K 4.6 mmol/ L 3.5-5. 2 normal Not Available [facility] [address] [address], [place], [address], 02/12/2024 14:20:49 02/12/20 24 02/12/2024 COMP. METAB OLIC PANEL cL 107 mmol/ L 95-108 normal Not Available [facility] [address] [facility] [address], [place], [address], 02/12/2024 14:20:49 02/12/20 24 02/12/2024 COMP. METAB OLIC PANEL CO2 25 mmol/ L 22-32 normal Not Available [facility] [address] [facility] [address], [place], [address], 02/12/2024 14:20:49 02/12/20 24 02/12/2024 COMP. METAB OLIC PANEL Ca 8.8 mg/dL 8.9-10 .5 low Not Available [facility] [address] [facility] [address], [place], [address], 02/12/2024 14:20:49 02/12/20 24 02/12/2024 COMP. METAB OLIC PANEL BUN 8 mg/dL 6-25 normal Not Available [facility] [address] [facility] [address] [facility] [address], [place], [address], 02/12/2024 14:20:49 02/12/20 24 02/12/2024 COMP. METAB OLIC PANEL creat 0.83 mg/dL 0.58-1 .04 normal Not Available [facility] [address] [address] [facility] [address], [place], [address], 02/12/2024 14:20:49 02/12/20 24 02/12/2024 COMP. METAB OLIC PANEL egfrcr 85 mL/mi n/1.7 3m^2 >60 normal The CKD-E PI 2020 equat ion has not been valid ated in pregn ant women . Not Available [facility] [address], [place], [address], 02/12/2024 14:20:49 02/12/20 24 02/12/2024 COMP. METAB OLIC PANEL tpro 6.5 g/dL 5.9-7. 9 normal Not Available [facility] [address] [address] [facility] [address], [place], [address], 02/12/2024 14:20:49 02/12/20 24 02/12/2024 COMP. METAB OLIC PANEL alb 3.6 g/dL 3.4-5. 3 normal Not Available [facility] [address] [place] [address] [address], [place], [address], 02/12/2024 14:20:49 02/12/20 24 02/12/2024 COMP. METAB OLIC PANEL A/G ratio 1.2 g/dL 1.0-2. 5 normal Not Available [facility] [address] [place] [address] [address], [place], [address], 02/12/2024 14:20:49 02/12/20 24 02/12/2024 COMP. METAB OLIC PANEL bili, tot 0.6 mg/dL 0.3-1. 2 normal Not Available [facility] [address] [place] [address] [address], [place], [address], 02/12/2024 14:20:49 02/12/20 24 02/12/2024 COMP. METAB OLIC PANEL alk phos 90 IU/L 33-130 normal Not Available [facility] [address] [place] [address], [place], [address], 02/12/2024 14:20:49 02/12/20 24 02/12/2024 COMP. METAB OLIC PANEL AST 37 IU/L 10-42 normal Not Available [facility] [address] [place] [address], [place], [address], 02/12/2024 14:20:49 02/12/20 24 02/12/2024 COMP. METAB OLIC PANEL ALT 67 IU/L 7-52 high Not Available [facility] [address] [place] [address] [address], [place], [address], 02/12/2024 14:20:49 02/12/20 24 02/12/2024 AMYLA SE amylase 42 U/L 28-100 normal Not Available [facility] [address], [place], [address], 02/12/2024 14:20:50 02/12/20 24 02/12/2024 LIPAS E lipase 76 U/L 11-82 normal Not Available [facility] [address] [facility] [address], [place], [address], 02/12/2024 14:20:51 02/12/20 24 02/12/2024 TSH TSH 3.030 uIU/m L 0.340- 4.200 normal Not Available [facility] [address] [place] [address] [address], [place], [address], 02/12/2024 14:20:53 02/12/20 24 02/12/2024 T4 FREE T4 free 1.02 NG/dL 0.58-1 .70 normal Not Available [facility] [address] [place] [address] [address], [place], [address], 02/12/2024 14:20:56 02/12/20 24 02/12/2024 T3, FREE T3, free 3.18 pg/mL 2.40-4 .40 normal Not Available [facility] [address] [place] [address] [address], [place], [address], 02/12/2024 14:21:01 02/12/20 24 02/12/2024 HELIC OBACT ER PYLOR I PANEL helicobacter pylori NOT DETECT ED Not Available [facility] [address] [address], [place], [address], 02/14/2024 17:43:12 02/12/20 24 02/12/2024 HELIC OBACT ER PYLOR I PANEL clarithromyc in resistance determinant NOT DETECT ED All tests liste d on this repor t were perfo rmed as a Labor atory Devel oped Test utili zing TEM-P CR (Targ et Enric hed Multi plex Polym erase Chain React ion) techn ology . [facility] [address], [address] [place] [address] Phone :[phone] - Toll Free: [phone] CLIA #[id number] Not Available [facility] [address], [place], [address], 02/14/2024 17:43:12 02/12/20 24 02/12/2024 urina lysis , dipst ick Color (reference range: clear-yellow ) yellow Not Available [address] [address], [place], [address], 02/12/2024 10:16:59 02/12/20 24 02/12/2024 urina lysis , dipst ick Clarity (reference range: clear) clear Not Available [address] [address], [place], [address], 02/12/2024 10:16:59 02/12/20 24 02/12/2024 urina lysis , dipst ick Glucose (reference range: negative) negati ve Not Available [address] [address], [place], [address], 02/12/2024 10:16:59 02/12/20 24 02/12/2024 urina lysis , dipst ick Bilirubin (reference range: negative) negati ve Not Available [address] [address], [place], [address], 02/12/2024 10:16:59 02/12/20 24 02/12/2024 urina lysis , dipst ick Ketone (reference range: negative) negati ve Not Available [address], [place], [address], 02/12/2024 10:16:59 02/12/20 24 02/12/2024 urina lysis , dipst ick Specific Poc[place]ontas (reference range: 1.000-1.035) 1.025 Not Available [address], [place], [address], 02/12/2024 10:16:59 02/12/20 24 02/12/2024 urina lysis , dipst ick pH (reference range: 5.0-10.) 5.5 Not Available [address], [place], [address], 02/12/2024 10:16:59 02/12/20 24 02/12/2024 urina lysis , dipst ick Protein (reference range: -trace) negati ve Not Available [address], [place], [address], 02/12/2024 10:16:59 02/12/20 24 02/12/2024 urina lysis , dipst ick Nitrite (reference range: negative) negati ve Not Available [address] [address], [place], [address], 02/12/2024 10:16:59 02/12/20 24 02/12/2024 urina lysis , dipst ick Blood (reference range: negative) negati ve Not Available [address], [place], [address], 02/12/2024 10:16:59 02/12/20 24 02/12/2024 urina lysis , dipst ick Leukocytes (reference range: negative) negati ve Not Available [address] [address], [place], [address], 02/12/2024 10:16:59 02/12/20 24 02/12/2024 urina lysis , dipst ick Urobilinogen (reference range: 0.2-1) 0.2 Not Available [address], [place], [address], 02/12/2024 10:16:59 02/12/20 24 02/12/2024 urina lysis , dipst ick Performed By [facility] Not Available [address] [address], [place], [address], 02/12/2024 10:16:59 02/12/20 24 02/12/2024 urina lysis , dipst ick [employer] Not Available [address] [address], [place], [address], 02/12/2024 10:16:59 02/12/20 24 02/12/2024 urina lysis , dipst ick Lot Number [id number] Not Available [address] [address], [place], [address], 02/12/2024 10:16:59 02/12/20 24 02/12/2024 urina lysis , dipst ick Expiration Date 2024 Not Available [address] [address], [place], [address], 02/12/2024 10:16:59 02/12/20 24 02/12/2024 urina lysis , dipst ick Date Opened 2023 Not Available [address] [address], [place], [address], 02/12/2024 10:16:59 05/15/20 24 05/15/2024 CBC-A UTO DIFF WBC. 4.8 K/uL 3.8-11 .0 normal Not Available [facility] [address] [facility] [address] [address], [place], [address], 05/15/2024 14:19:15 05/15/20 24 05/15/2024 CBC-A UTO DIFF ne%. 49.3 % 43.9-7 8.2 normal Not Available [facility] [address], [place], [address], 05/15/2024 14:19:15 05/15/20 24 05/15/2024 CBC-A UTO DIFF ly%. 41.3 % 13.4-4 3.9 normal Not Available [facility] [address] [address], [place], [address], 05/15/2024 14:19:15 05/15/20 24 05/15/2024 CBC-A UTO DIFF MO%. 7.8 % 4.9-12 .1 normal Not Available [facility] [address] [address], [place], [address], 05/15/2024 14:19:15 05/15/20 24 05/15/2024 CBC-A UTO DIFF eo%. 0.7 % 0.3-5. 1 normal Not Available [facility] [address] [address], [place], [address], 05/15/2024 14:19:15 05/15/20 24 05/15/2024 CBC-A UTO DIFF ba%. 0.9 % 0.0-1. 6 normal Not Available [facility] [address], [place], [address], 05/15/2024 14:19:15 05/15/20 24 05/15/2024 CBC-A UTO DIFF ne#. 2.4 K/uL 1.6-8. 6 normal Not Available [facility] [address] [place] [address] Rd [address], [place], [address], 05/15/2024 14:19:15 05/15/20 24 05/15/2024 CBC-A UTO DIFF ly#. 2.0 K/uL 0.4-4. 8 normal Not Available [facility] [address] [facility] [address] [address], [place], [address], 05/15/2024 14:19:15 05/15/20 24 05/15/2024 CBC-A UTO DIFF MO#. 0.4 K/uL 0.2-1. 3 normal Not Available [facility] [address] [address], [place], [address], 05/15/2024 14:19:15 05/15/20 24 05/15/2024 CBC-A UTO DIFF eo#. 0.0 K/uL 0.0-0. 6 normal Not Available [facility] [address], [place], [address], 05/15/2024 14:19:15 05/15/20 24 05/15/2024 CBC-A UTO DIFF ba#. 0.0 K/uL 0.0-0. 2 normal Not Available [facility] [address] [place] [address] [address] [facility], [place], [address], 05/15/2024 14:19:15 05/15/20 24 05/15/2024 CBC-A UTO DIFF RBC. 5.21 M/uL 3.74-5 .11 high Not Available [facility] [address], [place], [address], 05/15/2024 14:19:15 05/15/20 24 05/15/2024 CBC-A UTO DIFF HGB. 14.4 g/dL 12.0-1 5.3 normal Not Available [facility] [address] [place] [address] [address], [place], [address], 05/15/2024 14:19:15 05/15/20 24 05/15/2024 CBC-A UTO DIFF HCT. 43.6 % 34.4-4 4.8 normal Not Available [facility] [address], [place], [address], 05/15/2024 14:19:15 05/15/20 24 05/15/2024 CBC-A UTO DIFF MCV. 84 fL 82-99 normal Not Available [facility] [address], [place], [address], 05/15/2024 14:19:15 05/15/20 24 05/15/2024 CBC-A UTO DIFF MCH. 28 pg 28-34 normal Not Available [facility] [address], [place], [address], 05/15/2024 14:19:15 05/15/20 24 05/15/2024 CBC-A UTO DIFF MCHC. 33 g/dL 33-36 normal Not Available [facility] [address], [place], [address], 05/15/2024 14:19:15 05/15/20 24 05/15/2024 CBC-A UTO DIFF RDW. 14.3 % 12.0-1 5.2 normal Not Available [facility] [address], [place], [address], 05/15/2024 14:19:15 05/15/20 24 05/15/2024 CBC-A UTO DIFF plt. 135 K/uL 140-40 0 low Not Available [facility] [address], [place], [address], 05/15/2024 14:19:15 05/15/20 24 05/15/2024 COMP. METAB OLIC PANEL glu 90 mg/dL 70-100 normal Not Available [facility] [address] [place] [address] [address], [place], [address], 05/15/2024 14:56:54 05/15/20 24 05/15/2024 COMP. METAB OLIC PANEL Na 144 mmol/ L 134-14 3 high Not Available [facility] [address] [place] [address] [address], [place], [address], 05/15/2024 14:56:54 05/15/20 24 05/15/2024 COMP. METAB OLIC PANEL K 4.8 mmol/ L 3.5-5. 2 normal Not Available [facility] [address] [place] [address] [address], [place], [address], 05/15/2024 14:56:54 05/15/20 24 05/15/2024 COMP. METAB OLIC PANEL cL 106 mmol/ L 95-108 normal Not Available [facility] [address] [place] [address] [address], [place], [address], 05/15/2024 14:56:54 05/15/20 24 05/15/2024 COMP. METAB OLIC PANEL CO2 29 mmol/ L 22-32 normal Not Available [facility] [address] [place] [address] [address], [place], [address], 05/15/2024 14:56:54 05/15/20 24 05/15/2024 COMP. METAB OLIC PANEL Ca 9.4 mg/dL 8.9-10 .5 normal Not Available [facility] [address] [place] [address] [address], [place], [address], 05/15/2024 14:56:54 05/15/20 24 05/15/2024 COMP. METAB OLIC PANEL BUN 14 mg/dL 6-25 normal Not Available [facility] [address] [place] [address] [address], [place], [address], 05/15/2024 14:56:54 05/15/20 24 05/15/2024 COMP. METAB OLIC PANEL creat 0.84 mg/dL 0.58-1 .04 normal Not Available [facility] [address], [place], [address], 05/15/2024 14:56:54 05/15/20 24 05/15/2024 COMP. METAB OLIC PANEL egfrcr 83 mL/mi n/1.7 3m^2 >60 normal The CKD-E PI 2020 equat ion has not been valid ated in pregn ant women . Not Available [facility] [address], [place], [address], 05/15/2024 14:56:54 05/15/20 24 05/15/2024 COMP. METAB OLIC PANEL tpro 6.6 g/dL 5.9-7. 9 normal Not Available [facility] [address], [place], [address], 05/15/2024 14:56:54 05/15/20 24 05/15/2024 COMP. METAB OLIC PANEL alb 4.3 g/dL 3.4-5. 3 normal Not Available [facility] [address], [place], [address], 05/15/2024 14:56:54 05/15/20 24 05/15/2024 COMP. METAB OLIC PANEL A/G ratio 1.9 g/dL 1.0-2. 5 normal Not Available [facility] [address], [place], [address], 05/15/2024 14:56:54 05/15/20 24 05/15/2024 COMP. METAB OLIC PANEL bili, tot 0.5 mg/dL 0.3-1. 2 normal Not Available [facility] [address], [place], [address], 05/15/2024 14:56:54 05/15/20 24 05/15/2024 COMP. METAB OLIC PANEL alk phos 97 IU/L 33-130 normal Not Available [facility] [address], [place], [address], 05/15/2024 14:56:54 05/15/20 24 05/15/2024 COMP. METAB OLIC PANEL AST 15 IU/L 10-42 normal Not Available [facility] [address], [place], [address], 05/15/2024 14:56:54 05/15/20 24 05/15/2024 COMP. METAB OLIC PANEL ALT 11 IU/L 7-52 normal Not Available [facility] [address], [place], [address], 05/15/2024 14:56:54 05/15/20 24 05/15/2024 LIPID PANEL chol 189 mg/dL <200 normal Not Available [facility] [address], [place], [address], 05/15/2024 14:56:58 05/15/20 24 05/15/2024 LIPID PANEL trig 111 mg/dL <150 normal Not Available [facility] [address], [place], [address], 05/15/2024 14:56:58 05/15/20 24 05/15/2024 LIPID PANEL HDL 51 mg/dL 50-150 normal Not Available [facility] [address], [place], [address], 05/15/2024 14:56:58 05/15/20 24 05/15/2024 LIPID PANEL LDL-C 116 mg/dL <100 high Not Available [facility] [address], [place], [address], 05/15/2024 14:56:58 05/15/20 24 05/15/2024 LIPID PANEL VLDL-C 22 mg/dL <30 normal Not Available [facility] [address] [facility] [address] [address], [place], [address], 05/15/2024 14:56:58 05/15/20 24 05/15/2024 LIPID PANEL non-HDL 138 mg/dL <130 high Not Available [facility] [address], [place], [address], 05/15/2024 14:56:58 05/15/20 24 05/15/2024 LIPID PANEL chol/HDL 3.7 ratio <5.0 normal Not Available [facility] [address] [facility] [address], [place], [address], 05/15/2024 14:56:58 05/15/20 24 05/15/2024 LIPID PANEL LDL/HDL mhfac 2.3 ratio <3.0 normal Not Available [facility] [address] [facility] [address], [place], [address], 05/15/2024 14:56:58 05/15/20 24 05/15/2024 TSH W/REF THOMAS TO FT4 TSH 2.170 uIU/m L 0.340- 4.200 normal Not Available [facility] [address] [facility] [address], [place], [address], 05/15/2024 14:57:02 05/15/20 24 05/15/2024 T4 FREE T4 free 0.97 NG/dL 0.58-1 .70 normal Not Available [facility] [address] [facility] [address] [address], [place], [address], 05/15/2024 14:57:08 05/15/20 24 05/15/2024 VITAM IN B12 vb12 297 pg/mL 145-91 4 normal Indet ermin ate Range : 145 - 179 pg/mL Not Available [facility] [address] [facility] [address], [place], [address], 05/15/2024 14:57:12 05/15/20 24 05/15/2024 VITAM IN D, 25 OH, TOTAL vitd 31 NG/mL 30-100 normal Not Available [facility] [address] [place] [address] [address], [place], [address], 05/15/2024 14:57:18 05/15/20 24 05/15/2024 GGT GGT 8 IU/L 7-50 normal Not Available [facility] [address] [place] [address], [place], [address], 05/15/2024 14:57:26 05/15/20 24 05/15/2024 CRP CRP 6.2 mg/L <10.0 normal Not Available [facility] [address] [place] [address], [place], [address], 05/15/2024 14:57:32 05/15/20 24 05/15/2024 NATHAN TIN ferritin 62 NG/mL 11-307 normal Not Available [facility] [address] [place] [address] [address], [place], [address], 05/15/2024 14:57:41 05/15/20 24 05/15/2024 urina lysis , dipst ick Color (reference range: clear-yellow ) yellow Not Available [facility] [address] [facility] [address], [place], [address], 05/15/2024 09:43:40 05/15/20 24 05/15/2024 urina lysis , dipst ick Clarity (reference range: clear) clear Not Available [address], [place], [address], 05/15/2024 09:43:40 05/15/20 24 05/15/2024 urina lysis , dipst ick Glucose (reference range: negative) negati ve Not Available [address], [place], [address], 05/15/2024 09:43:40 05/15/20 24 05/15/2024 urina lysis , dipst ick Bilirubin (reference range: negative) negati ve Not Available [address], [place], [address], 05/15/2024 09:43:40 05/15/20 24 05/15/2024 urina lysis , dipst ick Ketone (reference range: negative) negati ve Not Available [address], [place], [address], 05/15/2024 09:43:40 05/15/20 24 05/15/2024 urina lysis , dipst ick Specific [place] (reference range: 1.000-1.035) 1.025 Not Available [address] [address], [place], [address], 05/15/2024 09:43:40 05/15/20 24 05/15/2024 urina lysis , dipst ick pH (reference range: 5.0-10.) 6.0 Not Available [address] [address], [place], [address], 05/15/2024 09:43:40 05/15/20 24 05/15/2024 urina lysis , dipst ick Protein (reference range: -trace) negati ve Not Available [address] [address], [place], [address], 05/15/2024 09:43:40 05/15/20 24 05/15/2024 urina lysis , dipst ick Urobilinogen (reference range: 0.2-1) 0.2 Not Available [address], [place], [address], 05/15/2024 09:43:40 05/15/20 24 05/15/2024 urina lysis , dipst ick Nitrite (reference range: negative) negati ve Not Available [address] [address], [place], [address], 05/15/2024 09:43:40 05/15/20 24 05/15/2024 urina lysis , dipst ick Blood (reference range: negative) negati ve Not Available [address] [address], [place], [address], 05/15/2024 09:43:40 05/15/20 24 05/15/2024 urina lysis , dipst ick Leukocytes (reference range: negative) negati ve Not Available [address] [address], [place], [address], 05/15/2024 09:43:40 05/15/20 24 05/15/2024 urina lysis , dipst ick Performed By cl Not Available [address] [address], [place], [address], 05/15/2024 09:43:40 05/15/20 24 05/15/2024 urina lysis , dipst ick [employer] Not Available [address] [address], [place], [address], 05/15/2024 09:43:40 05/15/20 24 05/15/2024 urina lysis , dipst ick Lot Number [id number] Not Available [facility] [address] [facility] [address], [place], [address], 05/15/2024 09:43:40 05/15/20 24 05/15/2024 urina lysis , dipst ick Expiration Date 2023 Not Available [facility] [id number] [facility] [address], [place], [address], 05/15/2024 09:43:40 05/15/20 24 05/15/2024 urina lysis , dipst ick Date Opened 2024 Not Available [id number] [facility] [address], [place], [address], 05/15/2024 09:43:40 07/11/20 24 07/11/2024 MRI, lumba r spine , w/o contr ast EXAM: MRI lumbar spine withou t IV contra st CLINIC AL HISTOR Y: Back pain COMPAR RENE: None TECHNI QUE: Multip lanar multi- sequen ce MR of the lumbar spine withou t contra st. FINDIN GS: Mild scolio sis presen t. Lumbar spine verteb ral body height s are well mainta ined. Conus medull sheree termin ates normal ly at the L1 level. No acute bone marrow edema identi fied. At the L2-3 level, mild disc bulge is seen. No signif icant centra l canal stenos is seen. Mild left neural forami nal narrow ing seen. At the L3/4 level, mild drafter apprentice ior disc osteop hyte comple x is presen t. Mild bilate ral neural forami nal narrow ing seen. No signif icant centra l canal stenos is seen. Mild facet degene ration presen t. At the L4-5 level, mild drafter apprentice ior disc osteop hyte comple x is presen t. Mild bilate ral neural forami nal narrow ing seen. No signif icant centra l canal stenos is seen. Modera te facet degene ration presen t. At the L5/S1 level, minima l disc bulge is seen. No signif icant neural forami nal narrow ing or centra l canal stenos is seen. Mild facet degene ration presen t. IMPRES VAHID: Mild scolio sis presen t. Mild multil evel degene rative change s presen t. No signif icant disc extrus ion or centra l canal stenos is seen. Mild neural forami nal narrow ing as above. INTERP RETED AND DICTAT ED BY: Declan Porras ombie [employer] DD: 2023 AD: 2023 9:25 AM Electr onical ly Signed : 2023 9:25AM [facility] [id number] [facility] [place] [address], [place], [address], 07/12/2024 09:03:30 07/11/20 24 07/11/2024 LDCT, chest , for lung pam r [place] lópez EXAM: [facility] [place] LOW DOSE CT FOR LUNG CANCER SCREEN ING-CT 71 CLINIC AL HISTOR Y: Tobacc o abuse COMPAR RENE: None TECHNI QUE: Multia xial CT images are obtain ed of the chest withou t contra st using low-do se techni que for the purpos es of lung cancer screen ing. Sagitt al and álvarez l reform ats are provid ed by the techno logist . Dose reduct ion techni ques used includ ing automa roberto exposu re contro l and/or adjust ment of the mA and/or kV accord ing to patien t size. FINDIN GS: Lower neck: Visual ized thyroi d is normal . No bulky lower cervic al lympha denopa thy. Medias tinum: Aorta is normal calibe r. Heart size is normal . No perica rdial effusi on. No medias tinal or perihi lar lympha denopa thy. Lungs: Well expand ed withou t pneumo thorax , pleura l effusi on, or focal consol idatio n. 3 mm solid nodule within the left upper lobe, series 3, image 49. Centra l airway s are patent . Visual ized upper abdome n: Cholec ystect anabella clips. Muscul oskele jeimy: No fractu re or aggres sive osseou s lesion . IMPRES VAHID: 3 mm solid nodule within the left upper lobe. Lung-R ADS Catego ry 2 - Benign appear ance or behavi or. Per guidel elaine set forth by the [facility] in this high risk patien t, annual screen ing low-do se CT is advise d. INTERP RETED AND DICTAT ED BY: Lincoln beltran DO [employer] DD: 2023 AD: 2023 10:27 AM Electr onical ly Signed : 2023 10:27A [facility] [id number] [facility], [place], [address], 07/12/2024 09:03:30 07/15/20 24 DEXA, axial skele ton No observ ation record ed. [facility] [address] [facility], [place], [address], 07/16/2024 12:37:30 Result Notes None recorded. Problems Name Problem SNOMED Code Status Onset Date Resolution Date Notes Provider Name and Address Organization Details Recorded Time Abdominal pain 01898685 Active 2023 LORIE TRINIDAD NP-C [address], [place], [address] , [facility] 4 10:16:40 Hypersomn ia 45876153 Active 2014 Hypersomni a, idiopathic ; Last Assessed: 20 Jan 2015 1:44PM Kirstie ntified By: ELVIRA MCRAE Man aged By: ELVIRA MCARE Edited: 20 Jan 2015 1:44PM González hager Reviewed Date: 20150120 P roblealexi Category: Active González t Assessed By: ELVIRA MCRAE (Internal Medicine-C oncord) Not Available [facility] 0 15:15:05 Hypoglyce tristen 757942021 Active 2011 Hypoglycem ia; Last Assessed: 03 Nov 2011 1:45PM Kirstie ntified By: JEFF PETER Last Edited: 12 Apr 2014 10:53AM [place] Reviewed Date: 20140412 P roblem Category: Active Las t Assessed By: JEFF RODRIGUEZ (Internal Medicine) Not Available [facility] 0 15:15:05 Hypothyro idism 97443146 Active 2012 Hypothyroi dism; Last Assessed: 19 Nov 2018 4:22PM Kirstie ntified By: ELVIRA MCRAE Man aged By: ELVIRA MCRAE Edited: 19 Nov 2018 4:31PM Las t Reviewed Date: 20181119 P roblem Category: Active Las t Assessed By: LUISITO ROOT (Family Medicine) Not Available [facility] 1 20:30:50 Idiopathi c periphera l autonomic neuropath y 91974303 Active 2012 Idiopathic peripheral autonomic neuropathy ; Last Assessed: 21 Mar 2017 12:06PM Id entified By: ELVIRA MCRAE Man aged By: ELVIRA MCRAE Edited: 21 Mar 2017 12:13PM [place] [facility] Reviewed Date: 20170321 P roblem Category: Active González t Assessed By: HOLLEY MANZANARES (Internal Medicine) Not Available [facility] 0 15:15:05 Insomnia 590205462 Active 2012 Insomnia; Last Assessed: 15 Jul 2015 10:33PM Id entified By: ELVIRA MCRAE Man aged By: JEFF RODRIGUEZ Last Edited: 15 Jul 2015 10:36PM [facility] Reviewed Date: 20150715 P roblem Category: Active González t Assessed By: JEFF RODRIGUEZ (Internal Medicine) Not Available [facility] 0 15:15:05 Irregular sleep-wak e pattern 172015457 Active 2013 Irregular Sleep-wake Rhythm; Last Assessed: 10 Mar 2014 12:59PM Id entified By: LENA(SLE EP)KENNEY Edited: 10 Mar 2014 1:03PM [place] t Reviewed Date: 20140310 P roblem Category: Active Las t Assessed By: LENA(SLE EP)KENNEY (Sleep Medicine) Not Available [facility] 0 15:15:05 Irritable bowel syndrome 07207243 Active 2010 Irritable bowel syndrome; Last Assessed: 22 Jan 2014 2:39PM Kirstie ntified By: ELVIRA MCRAE Las t Edited: 12 Apr 2014 10:53AM [facility] Reviewed Date: 20140412 P roblem Category: Active Las t Assessed By: ELVIRA MCRAE (Internal Medicine-C oncord) Not Available [facility] 0 15:15:05 Knee pain Active 2017 Knee pain, left; Last Assessed: 10 Apr 2018 4:17PM Kirstie ntified By: HOLLEY BOWMAN Ma naged By: HOLLEY BOWMAN La st Edited: 10 Apr 2018 4:27PM Las t Reviewed Date: 20180410 P roblem Category: Active Las t Assessed By: HOLLEY MANZANARES (Internal Medicine) Not Available [facility] 0 15:15:05 Obstructi ve sleep apnea syndrome 29730934 Active 2013 Obstructiv e sleep apnea; Last Assessed: 09 Jun 2016 11:35AM Pr oblem Descriptio n: Mild - AHI 10/hr. based on HST done on 02/11/14 Id entified By: LENA(SLE EP)KENNEY anaged By: JEFF RODRIGUEZ. Last Edited: 09 Jun 2016 11:37AM [facility] Reviewed Date: 20160609 P roblem Category: Active Las t Assessed By: JEFF RODRIGUEZ (Internal Medicine) Not Available [facility] 0 15:15:05 Anxiety disorder 880774667 Active 2009 Anxiety disorder; Last Assessed: 20 May 2013 4:13PM Kirstie ntified By: ELVIRA MCRAE . Last Edited: 12 Apr 2014 10:53AM [facility] Reviewed Date: 20140412 P roblem Category: Active Las t Assessed By: ELVIRA MCRAE (Internal Medicine-C oncord) Not Available [facility] 0 15:15:05 Body mass index 30+ - obesity 909395292 Active 2016 BMI 30.0-30.9, adult; Last Assessed: 11 Apr 2018 8:20AM Kirstie ntified By: Zandra Narayan Manag ed By: HOLLEY BOWMAN La st Edited: 11 Apr 2018 8:21AM Las t Reviewed Date: 20180411 P roblem Category: Active Las t Assessed By: OHLLEY MANZANARES (Internal Medicine) Not Available [facility] 0 15:15:05 Depressiv e disorder 46623203 Active 2012 Depression ; Last Assessed: 27 Dec 2016 3:58PM Kirstie ntified By: ELVIRA MCRAE Man aged By: CLEMENTINA ELVIRA González t Edited: 27 Dec 2016 3:59PM Las t Reviewed Date: 20161227 P roblem Category: Active Las t Assessed By: ELVIRA MCRAE (Internal Medicine-C oncord) Not Available [facility] 0 15:15:06 Fatigue 55045118 Active 2012 Fatigue; Last Assessed: 19 Nov 2018 4:22PM Kirstie ntified By: HOLLEY MANZANARES Ma naged By: ELVIRA MCRAE Las t Edited: 19 Nov 2018 4:31PM Las t Reviewed Date: 20181119 P roblem Category: Active Las t Assessed By: LUISITO ROOT (Family Medicine) Not Available [facility] 0 15:15:06 Flashing 421134395 Active 2016 Hot flashes; Last Assessed: 10 Apr 2018 4:24PM Kirstie ntified By: HOLLEY BOWMAN Ma naged By: HOLLEY BOWMAN La st Edited: 10 Apr 2018 4:27PM Las t Reviewed Date: 20180410 P roblem Category: Active Las t Assessed By: HOLLEY MANZANARES (Internal Medicine) Not Available [facility] 0 15:15:06 Hypersomn ia 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 organic factor 06324861 Active 2013 Organic hypersomni a; Last Assessed: 10 Mar 2014 1:00PM Kirstie ntified By: MATTHEWSLE EP)KENNEY Edited: 12 Apr 2014 10:53AM [facility] Reviewed Date: 20140412 P roblem Category: Active Las t Assessed By: MATTHEWSLE EP)KENNEY (Sleep Medicine) Not Available [facility] 0 15:15:06 Mass of ovary 699340022 Active 2015 Ovarian mass, right; Last Assessed: 26 Feb 2016 10:23AM Id entified By: DAPNHE SUAREZ Man aged By: DAPHNE SUAREZ Las t Edited: 26 Feb 2016 10:24AM La [facility] Reviewed Date: 20160226 P roblem Category: Active Las t Assessed By: DAPHNE SUAREZ (Internal Medicine-C oncord) Not Available [facility] 0 15:15:06 Posttraum atic stress disorder 50386830 Active 2014 Post traumatic stress disorder (PTSD); Last Assessed: 22 Jul 2015 5:11PM Kirstie ntified By: ELVIRA MCRAE Man aged By: ELVIRA MCRAE González t Edited: 22 Jul 2015 5:12PM Las t Reviewed Date: 20150722 P roblem Category: Active Las t Assessed By: ELVIRA MCRAE (Internal Medicine-C oncord) Not Available [facility] 0 15:15:06 Radicular pain 85555233 Active 2017 Radicular pain of thoracic region; Last Assessed: 07 Dec 2017 10:05AM Id entified By: Nelda Johnson Ma naged By: ELVIRA MCRAE González t Edited: 07 Dec 2017 10:06AM La st Reviewed Date: 20171207 P roblem Category: Active Las t Assessed By: Nelda Johnson Not Available [facility] 0 15:15:06 Cobalamin deficienc y 077635404 Active 2012 Vitamin B12 deficiency ; Last Assessed: 09 Jun 2016 11:35AM Id entified By: Zandra Narayan Manag ed By: JEFF RODRIGUEZ Last Edited: 09 Jun 2016 11:37AM La [facility] Reviewed Date: 20160609 P roblem Category: Active Las t Assessed By: JEFF RODRIGUEZ (Internal Medicine) Not Available [facility] 1 20:31:35 Vitamin D deficienc y 78443718 Active 2012 Vitamin D deficiency ; Last Assessed: 09 Jun 2016 11:35AM Id entified By: Zandra Narayan Manag ed By: JEFF RODRIGUEZ Last Edited: 09 Jun 2016 11:37AM La [facility] Reviewed Date: 20160609 P roblem Category: Active Las t Assessed By: JEFF RODRIGUEZ (Internal Medicine) Not Available [facility] 0 15:15:06 Problem Notes None recorded. Procedures Surgical History Date Name Laterality Status Provider Name and Address Organization Details Recorded Time 05/15/20 24 Advance Care Planning Discussion completed Mary White [facility] 05/15/2024 09:14:14 05/15/20 24 Depression Screening Discussion completed Mary Cindy [facility] 05/15/2024 09:14:14 05/15/20 24 Tobacco Cessation Discussion completed Mary Cindy [facility] 05/15/2024 09:14:14 05/15/20 24 Adult HME completed Mary Cindy [facility] 05/15/2024 09:14:14 05/27/20 22 Date of Last Mammogram completed Mary Cindy [facility] 05/15/2024 09:18:01 05/25/20 22 Depression Screening - Charges to be entered on the billing tab in the PHQ2/9 field completed CHENCHO MONTANO, ASSOCIATE SOFTWARE APPLICATION ENGINEER [address], [place], [address], [facility] 05/25/2022 08:40:57 05/05/20 22 Date of Last Pap Smear completed Mary White [facility] 05/15/2024 09:18:07 10/30/19 14 Cholecystectomy completed Cynthia Villarreal [facility] 02/12/2024 10:01:22 10/30/19 14 Gastrointestinal Surgery completed Cynthia Villarreal [facility] 02/12/2024 10:01:22 10/30/19 14 Colon Surgery completed Cynthia Villarreal [facility] 02/12/2024 10:01:22 10/30/19 14 Partial Hysterectomy completed Cynthia Villarreal [facility] 02/12/2024 10:01:22 05/01/20 13 colotomy completed Stacey Lisa LPN [facility] 05/25/2022 08:14:01 10/30/19 03 Hernia Repair completed Cynthia Villarreal [facility] 02/12/2024 10:01:22 Imaging Results Imaging Date Name Status LastModified by [facility] Details LastModified Time 07/11/2024 MRI, lumbar spine, w/o contrast completed [facility] [address], [place], [address], 07/12/2024 09:03:30 07/11/2024 LDCT, chest, for lung cancer screening completed [facility] [address], [place], [address], 07/12/2024 09:03:30 07/15/2024 DEXA, axial skeleton completed [facility] [address], [place], [address], 07/16/2024 12:37:30 Procedure Notes None recorded. Medical Equipment None Reported. Allergies Allergen ID Allergen Name Allergen Category Reaction Reaction Severity Criticality Documentation Date Start Date Code Code System Note Provider Name and Address Organization Details Recorded Time 518350 ofloxacin medicatio n arthralgi a (joint pain) Not available Not available 04/29/20202016 7623 RxNorm React ion: Joint Pain; Comme nt: RxNor m Code: 7623 ; Not Available [facility] 0 23:08:06 083034 influenza virus vaccine, specific Not available Not available Not available Not available 05/25/2022 [id number] LINDA Lisa LPN [place], [place] - [facility] 2 08:12:36 Medications Name Sig Start Date Stop Date Status Note LastModified by Organization Details LastModified Time cyclobenzap rine 10 mg tablet TAKE 1/2 TO 1 TABLET BY MOUTH EVERY 12 HOURS NEEDED 05/25 completed Not Available Not Available Not Available amoxicillin 500 mg capsule TAKE 1 CAPSULE BY MOUTH THREE TIMES A DAY 08/28 completed Not Available Not Available Not Available ipratropium 0.5 mg-albutero l 3 mg (2.5 mg base)/3 mL nebulizatio n soln USE 3 ML VIA NEBULIZER FOUR TIMES DAILY 02/11 completed Not Available Not Available Not Available fluconazole 150 mg tablet TAKE 1 TABLET BY MOUTH 1 TIME AFTER COMPLETIN G ANTIBIOTI C FOR 2 DAYS. REPEAT IN 4 DAYS NEEDED 05/25 completed Not Available Not Available Not Available valacyclovi r 1 gram tablet TK 2 T PO BID FOR 1 DAY STARTING THE FIRST SGIN OF ONSET 05/14 completed Not Available Not Available Not Available amoxicillin 500 mg tablet TAKE 1 TABLET BY MOUTH TWICE DAILY 02/11 completed Not Available Not Available Not Available pantoprazol e 20 mg tablet,adilene yed release Take 1 tablet every day by oral route for 30 days. 05/14 completed Not Available Not Available Not Available propranolol 10 mg tablet TAKE 1 TABLET BY MOUTH THREE TIMES DAILY 02/11 completed Not Available Not Available Not Available baclofen 10 mg tablet TAKE 1 TABLET BY MOUTH THREE TIMES DAILY FOR 10 DAYS 02/11 completed Not Available Not Available Not Available levothyroxi ne 50 mcg tablet TAKE 1 TABLET BY MOUTH EVERY MORNING BEFORE BREAKFAST active Not Available Not Available No t Available esomeprazol e magnesium 40 mg capsule,del ayed release Take 1 tablet daily active Not Available Not Available No t Available diclofenac sodium 75 mg tablet,adilene yed release TAKE 1 TABLET BY MOUTH TWICE DAILY WITH FOOD 02/11 completed Not Available Not Available Not Available amoxicillin 875 mg-potassiu m clavulanate 125 mg tablet TAKE 1 TABLET BY MOUTH EVERY 12 HOURS 05/25 completed Not Available Not Available Not Available Advil Cold and Sinus Take 1 tablet daily 05/25 completed Not Available Not Available Not Available Menopause Relief Amberen Take 2 tablets daily 05/25 completed Not Available Not Available Not Available ID NOW COVID-19 Test Kit TEST DIRECTED TODAY 08/28 completed Not Available Not Available Not Available Vitals Date Recorded Body height Heart rate Body temperature Oxygen saturation Oxygen saturation in Arterial blood by Pulse oximetry Body mass index (BMI) Body weight Systolic blood pressure Diastolic blood pressure Provider Name and Address Organization Details Last Updated DateTime 1 167.64 cm 105 /min 98.5 [degF] 99 % 99 % 30.3 kg/m2 88988.3 7 g 132 mm[Hg] 86 mm[Hg] KIARA Pena [facility] 1 15:23:06 Date Recorded Body weight Body mass index (BMI) Body height Oxygen saturation Oxygen saturation in Arterial blood by Pulse oximetry Heart rate Systolic blood pressure Diastolic blood pressure Provider Name and Address Organization Details Last Updated DateTime 2 09685 g 29.7 kg/m2 167.64 cm 97 % 97 % 100 /min 126 mm[Hg] 70 mm[Hg] Stacey Lisa LPN [facility] 2 08:15:26 Date Recorded Heart rate Oxygen saturation Oxygen saturation in Arterial blood by Pulse oximetry Body weight Systolic blood pressure Diastolic blood pressure Provider Name and Address Organization Details Last Updated DateTime 3 116 /min 98 % 98 % 61329.4 8 g 128 mm[Hg] 64 mm[Hg] Indra Beach [facility] 3 16:10:01 Date Recorded Heart rate Oxygen saturation Oxygen saturation in Arterial blood by Pulse oximetry Respiratory rate Body height Body mass index (BMI) Body weight Systolic blood pressure Diastolic blood pressure Provider Name and Address Organization Details Last Updated DateTime 4 114 /min 98 % 98 % 15 /min 167.64 cm 28.5 kg/m2 44773.4 1 g 124 mm[Hg] 88 mm[Hg] Cynthia Villarreal [facility] 4 10:04:38 Date Recorded Body height Heart rate Oxygen saturation Oxygen saturation in Arterial blood by Pulse oximetry Body mass index (BMI) Body weight Systolic blood pressure Diastolic blood pressure Provider Name and Address Organization Details Last Updated DateTime 4 167.64 cm 96 /min 100 % 100 % 27.1 kg/m2 61910.5 2 g 122 mm[Hg] 78 mm[Hg] Mary White [facility] 4 09:19:55 Social History Question Answer Notes LastModified by Organizat ion Details LastModified Time Tobacco Smoking Status Current Every Day Smoker CHENCHO MONTANO, SHARMILA [address], [place], [address], [facility] 05/25/2022 08:40:14 Do You Have An Advance Directive? No Information n ot available 05/25/2022 Is Blood Transfusion Acceptable In An Emergency? Yes Information not available 02/12/2024 What Type Of Diet Are You Following? REGULAR Information n ot available 02/12/2024 What Is The Highest Grade Or Level Of School You Have Completed Or The Highest Degree You Have Received? [id number] Information not available 02/12/2024 How Many Times Per Week Do You Exercise? 1-2 Times Per Week Information not available 05/15/2024 Have There Been Any Changes To Your Family Or Social Situation? No Information no t available 02/12/2024 Do You Use Insect Repellent Routinely? No Information not available 05/15/2024 How Often Does Anyone, Including Family Physically Hurt Or Threatened To Hurt You? Never Information not available 05/15/2024 How Often Does Anyone, Including Family, Scream Or Curse At You? Never Information not available 05/15/2024 In The Past 7 Days, How Often Have You Dix Sleepy During The Daytime? IF Patient Answers Usually Or Always , Please Complete The STOP-Bang Questionnaire Found In The Screening Section. Sometimes Information not available 05/15/2024 Do You Have A Healthcare Power Of Manager Transportation Planning? (If Yes, Please Bring A Copy To The Next Visit) No Information not available 05/15/2024 Do You Have A Living Will?(If Yes, Please Bring A Copy To The Next Visit) No Information not available 05/15/2024 Do You Have Any Concerns With Your Hearing? No Information not available 05/15/2024 Do You Have Any Concerns With Your Vision? No Information not available 05/15/2024 How Would You Describe Your General Health Status? Fair Information not available 05/15/2024 Do You Have Any Concerns Regarding Your Weight? No Information not available 05/15/2024 Do You Have Regularly Scheduled Dental Visits? Yes Information not available 05/15/2024 IF You Drink Alcohol, How Many Drinks Per Day? IF Patient Drinks More Than The Recommended Daily Intake Of Alcohol (1 Drink Per Day For Women Or 2 Drinks Per Day For Men) Please Complete The CAGE Questionnaire Found In The Screening Section. 1 Information not available 05/15/2024 Are You Eating The Recommended Daily Intake Of Fruit, Vegetables, And Whole Grains? No Information not available 05/15/2024 Do You Avoid Fatty Foods? Yes Information not available 05/15/2024 Do You Avoid Sugary Beverages? Yes Information no t available 05/15/2024 Do You Ever Decline To Attend Social Events Due To Anxiety? No Information not available 05/15/2024 How Hard Is It For You To Pay For The Very Basics Like Food, Housing, Medical Care, And Heating? Not Hard At All Information not available 05/15/2024 Do You Have A Medical Power Of Manager Transportation Planning? No Information not available 05/25/2022 What Is Your Current Pack Years? 10-19packyear s Information not available 05/25/2022 What Is Your Relationship Status? Information not available 05/25/2022 Do You Use Your Seat Belt Or Car Seat Routinely? Yes Information not available 05/25/2022 Are You Sexually Active? Yes Information not available 05/25/2022 At What Age Did You Start Smoking Tobacco? 15 Information not available 02/12/2024 Are You Passively Exposed To Smoke? Yes Information no t available 02/12/2024 How Much Tobacco Do You Smoke? 0.5 PPD Information not available 05/25/2022 Do You Use Sunscreen Routinely? No Information not available 05/25/2022 Has Tobacco Cessation Counseling Been Provided? No Information not available 02/12/2024 How Many Years Have You Smoked Tobacco? 10 Information not available 05/25/2022 Have You Used IV Drugs? No Information not available 02/12/2024 Are You Currently In School? No Information not available 02/12/2024 Sex: Unknown Functional Status Question Answer Note LastModified by Organizat ion Details LastModified Time Do you use any illicit or recreational drugs? No Information not available 05/25/2022 Do you or have you ever used any other forms of tobacco or nicotine? No Information not available 05/25/2022 What is your level of alcohol consumption? Occasional Information not available 05/25/2022 Do you or have you ever used smokeless tobacco? Never used smokeless tobacco Information not available 02/12/2024 Are you currently employed? Yes Information not available 05/25/2022 Do you have transportation difficulties? No Information not available 05/25/2022 Are you able to care for yourself? 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 Occasional Information not available 05/25/2022 Mental Status Question Answer Note LastModified by Organization D etails LastModified Time Do you have difficulty concentrating, remembering or making decisions? No Information no t available 02/12/2024 Family History Relationship Description Onset Age of this Age Resolved Age Notes LastModified by Organization Details LastModified Time Mother Malignant neoplasm of brain Not available 2020 15:23:52 Notes:Mother: Family history of malignant neoplasm of brain Medical History No medical history recorded. Gynecological History Statement/Question Response Date of Last Mammogram 05/27/2022 Sexually Active? Y STIs/STDs N Date of Last Pap Smear 05/05/2022 Current Control Method None Age at Menarche 15 Obstetrics History GPAL:G 0 P 0 0 0 0 Immunizations Vaccine Type Date Status Note Provider Nam e and Address Organization Details Recorded Time influenza, split (incl. purified surface antigen) 07/28/2010 completed KIARA [place] - [facility] 08/28/2023 16:09:52 Tdap 01/15/2014 completed KIARA Barclay [place] [facility] [place] 08/28/2023 16:09:52 Past Encounters Encounter ID Performer Location Encounter Start Date Encounter Closed Date Diagnosis/Indication Diagnosis SNOMED-CT Code Diagnosis ICD10 Code Diagnosis Note [id number] St[facility] [facility] ([facility]) [address] [place] [address] 01/28/2021 04:27:17 01/28/2021 04:27:17 [id number] ELVIRA MCRAE DO [facility] [address] [facility] [address] [place] [address] 04/05/2021 14:34:04 04/05/2021 16:10:26 Hypothyroidism [id number] E03.9 update labs and will refill once results have returned Right flank pain [id number] 09 R10.9 urine dip negative. Pain is not in the flank itself. No CVA tenderness Menopausal symptom 99227 002 N95.1 will check labs as below and call with results. Right uppe r quadrant pain [id number] R10.11 Her exam and history is much more consistent with an acute abdominal wall muscle injurywiwili send for labs to be sure nothing more concerning is present but I suspect muscle injuryadvi sed advil 600mg tidrx of flexeril 10mg as belowno lifting or heavy work for emigdio call with lab results [id number] ELVIRA MCRAE, _[facility] [address] [facility] [address] [place] [address] 05/25/2022 08:05:05 05/25/2022 10:46:28 Adult health examination [id number] Z00.00 Labs today.She does not have medical insurance at this time and declines cologuard, mammogram or pap. She will consider once she obtains health insurance. She does have dental and eye insurance and receives regular exams.Heal thy diet and exercise encouraged .Declines smoking cessation. F/U in 1 year Depression screening 171 743824 Z13.31 negative Active or passive immunization 174269490 Z23 Herpes labialis 9103145 B00.1 Valtrex as needed. Hypothyroidism 26962074 E03.9 Stable on Levothyrox ine. Patient de clines smoking cessation information [id number] 104 Z53.20 She declines smoking cessation as she tried Chantix in the past and per pt., that is what caused her colon issues leading to 95% colectomy of large intestine. Cigarette smoker 3019736 7 F17.210 Declines CXR. Declines smoking cessation. Screening for malignant neoplasm of breast 473877483 Z12.39 Colon can er screening declined [id number] 9109 Z53.20 95% colectomy of large intestine. She will consider cologuard in future. Screening for malignant neoplasm of cervix declined 396269337 Z53.20 Declines for now, she will consider once she obtains health insurance. [id number] JAYE CAO MD [facility] [address] [facility] [address] [place] [address] 08/28/2023 15:55:38 08/28/2023 17:06:50 Low back pain 331477437 M54.50 PlanPatien t education review unclear etiology of her persistent low back pain.Treat ment measures reviewed in detail.X-r ay requisitio nContinue conservati ve measuresBa clofen 10 mg up to 3 times daily, consult on sedationDi clofenac sodium 75 twice daily with food for back pain short-term use onlyStrong ly encouraged and offered physical therapy, but patient deferred.S bogdan advised to call me as soon as possible if she should change her mind for a referral.A lso clear and understand s, if an MRI is in her future, she would have to complete x-ray and physical therapy. Hypothyroidism 86403649 E03.9 PlanContin ue current medication management Thyroid serology today Plan to call patient with results as soon as they are available Advised to call me back as instructed if needed Follow-up if worse, continues, as instructed , or as scheduled The above report may contain errors in syntax, word selection, grammar, and/or spelling errors related to voice recog. SW. Tachycardia 8579719 R00. 0 PlanEducat ion review concerning tachycardi a and treatment options.Se lf stated history of POTS, she is familiar with beta-block er treatment with POTS.Trial /start propanolol 10 mg 1 tablet up to 3 times daily.Educ ation review this medication to help reduce heart rate, help manage anxiety symptoms, but be cautious with blood pressure as it can reduce blood pressure. Clear and understand s Malaise 135169828 R53.81 PlanExpand ed blood work Paresthesi a of bilateral hands 144951767 R20.2 Planpatien t education review suspected carpal tunnel syndrome.R ana miewed nerve conduction study as a helpful tool to confirm diagnosis. Patient deferred for now.Conser vative treatment measures reviewed [id number] ELVIRA MCRAE DO [facility] [address] [facility] [address] [place] [address] 02/12/2024 09:56:56 02/12/2024 10:46:10 History of partial resection of colon [id number] Z90.49 Will refer to GI for monitoring and possible stomach ulcer. Abdominal pain 72474615 R10.9 Reviewed informatio n with patient about GERD and possible stomach ulcer. Patient educated about GERD, symptoms, and physiology of disease. Discussed lifestyle modificati ons to improve symptoms including reducing spicy/acid ic foods, coffee and carbonated beverages, mint, chocolate, and alcohol. Patient should avoid eating within 2-3 hours of sleeping and eat in small increments . May use OTC antacids for mild indigestio n. Will initiate pantoprazo le qd. Discussed new prescripti on with patient including patient's dosage, timing, and common side effects. Reviewed adverse and serious reactions from medication and discussed course of action if these are to occur. Patient advised to contact the office for any concerns regarding their new medication . Educated abdominal pain and when to seek emergent care. Hypothyroidism 03768470 E03.9 Will continue to monitor patient's thyroid level. [id number] ELVIRA MCRAE DO [facility] [address] [facility] [address] [place] [address] 05/15/2024 09:02:35 05/15/2024 15:11:33 Adult health examination 959293942 Z00.00 Cobalamin deficiency 190 449227 E53.8 Hypothyroidism 59011941 E03.9 Vitamin D deficiency 347 60980 E55.9 Obstructiv e sleep apnea syndrome 91173956 G47.33 Standardiz ed adult depression screening tool completed [id number] 11828 Z13.31 Lumbar radiculopathy 128 697791 M54.16 Cigarette smoker 3164188 7 F17.210 Postmenopausal state 764 10127 Z78.0 Liver enzy mes level above reference range 172194662 R74.01 Health Concerns Section Related Observation LastModified by Organization Detai ls LastModified Time None Recorded Concern Status LastModified by Organization Details LastModified Time None Recorded Advance Directives Directive N: Payers Insurance Date Sequence Insurance Name Policy Number Policy Pena Covered Member ID Pena Member ID Guarantor Name 07/10/2024 1 [facility] [employer] [facility] (PPO) [id number] Caron Turner [id number] Caron Turner 08/28/2023 1 *SELF PAY* Josselyn sa Luis Turner Notes Date Note Type Note Provider Name and Address Organization Details Recorded Time 04/05/2021 text/html 51 yo female see n today due to right upper abdominal pain. 2-3 weeks ago she began having pain to the right upper quadrant. Had been intermittent but generally sore all the time. however for the past 3 days it has been severe. Pain with movement. Has pain at rest but is just sore but becomes stabbing and sharp if she tries to roll over in bed, sit up, change positions. Has some nausea but no vomiting Gallbladder removed in 2013. Is concerned that she has something wrong with her liver. Minimal alcohol. Does take advil. When asked about recent activities pt admits that she has been doing lots of physical labor. 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 3 weeks ago before the pain started she was helping to replace the roof. Has physically lifted all of the shingles up to the roof herself with her . Then 4 days ago right before the pain became so severe she had been running the tractor. Is an old tractor and does not have power steering It takes all of hr strength to steer the tractor. Was on it for -4 hours that day. The next morning she had severe upper abdominal pain with any movement. Has also been having hot flashes and night sweats. Us up 2-3 times a night. Has not slept through the night for months Assumed that she is having menopausal symptoms. in 2012 she had been on Chantix to quit smoking and had severe constipation and ended up having part of her colon removed Has had multiple medical issues since. Hx of having hypothyroidism. Is on levothyroxine- labs not done since last year. needs med refill. RC RAMOS, GISSEL [address], [place], [address], [facility] 04/06/2021 12:31:09 05/25/2022 text/html Annual WellnessReported bypatient.Diet and Nutrition:discussed vitamin and supplement use; discussed diet improvement Fracture Risk:no recent explained fracture; no sudden unexplained fractures Physical Activity:does not exercise on a regular basis Additional Lifestyle Factors:tobacco use; drinks alcohol (mild-moderate) Depression Risk:no thoughts of suicide Hearing:no loss of hearing Vision:no vision problems Caron comes in today for her annual physical. She is fasting for labs. She is due for Cologuard, mammogram, and Pap but does not have insurance at this time so declines for now. She does have dental and vision coverage so she does receive regular dental and eye exams. She denies any issues or concerns today. ELVIRA MCRAE DO [address], [place], [address], [facility] 05/25/2022 19:25:55 08/28/2023 text/html 53-year-old femluis le complaining of persistent low back, referred pain down right leg, numbness sensation of the hands, rapid heart rate, and anxiety. Onset symptoms about 3-4 weeks ago. No history of injury, trauma, misstep that would cause lower back pain. She does not recall if she woke up with the pain. Gradual then persistent. Treatment failure conservative measures became worried after back pain not improving. She complains of referred pain down the right side lateral aspect of her leg slightly beyond the knee. No numbness or weakness of the lower extremities. Affecting ADLs and sleep.No bowel or bladder complaints. Also complaining of bilateral hand numbness sensation off and on. Most noticeable when she is holding the steering well. 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 No numbness involving the forearms upper extremities. Never diagnosed carpal tunnel syndrome.She does complain of upper back and neck muscle pain. No history of trauma to the upper back/cervical spine. Complaining of anxiety like rapid heart rate. Heart rate seems consistently elevated. No chest pain or shortness of breath. Self stated medical history POTS. Patient states that the symptoms she is currently complaining about feels similar. 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 Patient admits that she is working too much. Medical condition hypothyroid on medication management. She has not had her thyroid checked in quite a while now. No complaints of any fever, chills, chest pain or shortness of breath. Appetite is good. Medical history reviewed through EMR ELVIRA MCRAE DO [address], [place], [address], [facility] 08/29/2023 17:38:51 02/12/2024 text/html Pt. here today f or sick visit. Says she had a stomach flu ~ 3 weeks ago that resolved. She then went to ED for possible blockage and had a CT. She was told that she may have stomach ulcers. She has hx of bowel resection (95%) and is having bright yellow BMs. She previously Dr. Greer at [facility]. She says the pain is a 4-5/10. It is located in her lower abdomen. But now she also has pain in her epigastrium. She has been taking pepcid complete but this made her nauseated. She was given a lidocaine for her stomach. She has been significantly more stressed lately. No other concerns voiced at this time. ELVIRA MCRAE, DO [address], [place], [address], [facility] 02/12/2024 11:00:25 05/15/2024 text/html this is a 54 y/o female with hypothyroidism that presents to the office for her annual cpe. she had a c scope last week which was neg. she states that she had u/s of liver and abd which was normal. she is seeing dr. sheehan. she is taking her meds. she states that she is still having increase abd and stomach bloating. she states that spicy foods increase pain and GERD. she states that she is having loose stools and in the past her liver enzymes were slightly elevated. her gi has changed her to generic nexium and this is not working as well as the pantoprazole. she is having increase lumbar back pain and this has been ongoing for 1 year. the pain radiates to the buttocks. she states that pain is worse with standing and in am. she states that she has been to physical therapy in the past with no help. her insurance requires 6 mo before paying for mri she wants to get an mri and pay lainez for this. He unfortunately still smoking cigarettes she is down to half a pack a day but she has a 40-year history of a pack a day. We will need to consider doing a CT low-dose lung exam. She presents today for an evaluation and follow-up on her general health. ELVIRA MCRAE, [address], [place], [address], [facility] 05/15/2024 09:55:54 OBGyn Episode No OBEpisode recorded.
[2025-03-10 22:14] VITALS: BP 143/106; PULSE 107; RESP 22; TEMP 36.7; O2SAT 98; BMI 28.2
--- NOTE | 2025-03-10 22:20 | CT_ITS ---
PROCEDURE INFORMATION: Exam: CT Abdomen And Pelvis With Contrast Exam date and time: 03/10/2025 10:52 PM Age: 55 years old Clinical indication: Abdominal pain; Additional info: Severe R abd pain, h/o cholecystectomy/colectomy TECHNIQUE: Imaging protocol: Computed tomography of the abdomen and pelvis with contrast. Radiation optimization: All CT scans at this facility use at least one of these dose optimization techniques: automated exposure control; mA and/or kV adjustment per patient size (includes targeted exams where dose is matched to clinical indication); or iterative reconstruction. Contrast material: ISOVUE; Contrast volume: 75 ml; Contrast route: IV; COMPARISON: CT ABDOMEN PELVIS W CON 02/04/2024 8:08 PM FINDINGS: Lungs: Lung bases are clear. Diaphragm: Small hiatal hernia. Spleen is normal Liver: The liver is normal. Gallbladder and biliary ducts: There has been a cholecystectomy. Pancreas: Pancreas appears normal. Spleen: See Diaphragm finding. Adrenal glands: The adrenal glands appear normal. Kidneys and ureters: The kidneys are normal. Stomach and bowel: The stomach is fluid-filled and distended image 1 series 11/26 and . Fluid-filled distended duodenal image . Abrupt transition to smaller caliber small bowel at the aorto SMA interval axial image 54; similar to 02/04/2024. Small high density focus near the 3rd duodenal image ; similar to the prior exam. Total colectomy. Anastomosis at the level the sigmoid colon image similar to the prior exam. Appendix: Surgically absent. Intraperitoneal space: Unremarkable. No free air. No significant fluid collection. Vasculature: Portal vein, splenic vein, SMV are patent. The aorta is normal. Visceral arteries are patent. Lymph nodes: No free air or fluid or adenopathy. Urinary bladder: The bladder is normal. Reproductive: There has been a hysterectomy. Bones/joints: Multilevel degenerative change of the lumbar spine. Soft tissues: Unremarkable. IMPRESSION: 1. No free air or fluid or adenopathy. 2. The stomach is fluid-filled and distended image 1 series 11/26 and . NG tube decompression may be helpful. 3. Fluid-filled distended duodenuml image /55. Abrupt transition to smaller caliber small bowel at the aorto SMA interval axial image 54; similar to 02/04/2024. SMA syndrome not entirely excluded. 4. Small high density focus near the 3rd duodenal image ; similar to the prior exam. 5. Total colectomy. Anastomosis at the level the sigmoid colon image similar to the prior exam.
--- NOTE | 2025-03-10 22:22 | ED_ITS ---
Discharge Plan Disposition Patient Disposition: Home, Self-Care Prescriptions Prescriptions: New dicyclomine 10 mg capsule 10 mg PO QID PRN (Reason: abdominal pain) Qty: 20 0RF ondansetron HCl 4 mg tablet 4 mg PO Q8H PRN (Reason: nausea and vomiting) 5 Days Qty: 30 0RF Referrals Follow up/Referrals: Provider,Referral, MD [Primary Care Provider] - See instructions Activity Restrictions/Add. Instructions Additional Instructions/Restrictions: Please take Tylenol and the Bentyl as needed for pain. Please take Zofran as needed for nausea and vomiting. Consider trying [id number] melatonin and/or Benadryl for sleep. Please return with a stool sample for testing. Please follow-up with your primary care provider. Please return to the emergency department if you develop any new or worsening symptoms or become concerned for your health. Clinical Impressions Clinical Impression: Right sided abdominal pain Instructions Patient Instructions: DI for Acute Abdominal Pain Print Language Print Language: Hungarian Discharge ED Provider: Reese Cueto General Adult HPI <Elaina Cam DO - Last Filed: 03/10/25 22:33> General Chief complaint: Abdominal Pain Stated complaint: Right side pain with nausea Time Seen by Provider: 03/10/25 22:17 Mode of Arrival: Ambulatory Source of Information: Patient Description of Symptoms (Recalled from ER Triage Doc. by RN): pt c/o right sided abdominal pain since monday. history of having 95% of her large intestined has been removed. Still has her appendix but has had her gallbladder removed. History of Present Illness HPI narrative: This patient is a 55-year-old female with a history of prior colectomy, tobacco dependence, and hypothyroidism presenting to the emergency department for evaluation with concern for severe right sided abdominal pain. She is status post prior cholecystectomy. She does that she started having right side abdominal pain on Monday and was having ascitic diarrhea. She knows she always has diarrhea with her colectomy, but this was burning. She took some charcoal over the weekend with some improvement and was able to have a decent loose bowel movement that was not burning on Monday, but since then symptoms have significant gotten worse. She notes nausea but no vomiting. She has urinary frequency with only small amounts of urine but denies any dysuria or hematuria. She denies experiencing pain like this in the past. She notes that she had a colectomy because Chantix caused her bowel to stop working and peristalsing like it supposed to Related Data Previous Rx's ?Medication ?Instructions ?Recorded dicyclomine 10 mg capsule 10 mg PO QID PRN abdominal pain 03/11/25 #20 caps ondansetron HCl 4 mg tablet 4 mg PO Q8H PRN nausea and 03/11/25 vomiting 5 days #30 tabs Allergies Allergy/AdvReac Type Severity Reaction Status Date / Time No Known Allergies Allergy Verified 02/04/24 19:49 PFSH <Elaina Cam DO - Last Filed: 03/10/25 22:33> [facility] Disclaimer: The information contained in this section may have been updated after the patient was seen, as this information can be updated by other users. Social History Smoking Status: Never smoker alcohol intake: never current occupational status: employed Travel in the last 8 weeks?: Inside the [place] Have you lived/traveled outside [place] in past 30 days?: No Contact w/someone who lives/traveled outside [place] past 30 days?: No Exposure to someone with infectious disease in past 14 days?: No Do you have a fever (greater than 100.4 F or 38 C)?: No Have you tested positive for COVID-19?: No Exposed to someone with COVID-19 in past 14 days?: No Do you have a sore throat?: No Do you have a cough?: No Do you have any weakness?: No Do you have any diarrhea?: No Are you experiencing any unusual bleeding?: No Do you have any muscle aches/pain?: No Do you have any abdominal pain?: No Are you experiencing loss of taste or smell?: No <Elaina Cam DO - Last Filed: 03/10/25 22:33> ROS Obtained: Yes All systems reviewed & no additional complaints except as documented Physical Exam <Elaina Cam DO - Last Filed: 03/10/25 22:33> General General appearance: alert Comment: Very uncomfortable appearing, pacing around the room Head Head exam: atraumatic and normocephalic Eye Eye exam: Present normal appearance, PERRL and EOMI ENT ENT exam: Present normal exam, normal oropharynx, mucous membranes moist and normal external ear exam Neck Neck exam: Present normal inspection, full ROM and trachea midline; Absent tenderness Chest Chest inspection: Present normal inspection and symmetric chest wall rise; Absent tenderness Respiratory Respiratory exam: Present normal lung sounds bilaterally; Absent respiratory distress, wheezes, stridor or accessory muscle use Cardiovascular Cardiovascular exam: Present regular rate and normal rhythm Abdominal Exam Abdominal exam: Present soft and tenderness (Right upper quadrant/right side of the abdomen); Absent distention, guarding, rebound or rigidity Extremities Exam Extremities exam: Present normal inspection, full ROM and normal capillary refill; Absent tenderness or edema Back Exam Back exam: Present normal inspection and full ROM; Absent tenderness Neurological Exam Neurological exam: Present alert, oriented X3, CN II-XII intact and normal gait; Absent motor sensory deficit Psychiatric Psychiatric exam: Present normal affect and normal mood Skin Skin exam: Present warm and dry Medical Decision Making <Elaina Cam DO - Last Filed: 03/10/25 22:33> Medical Records Medical records reviewed: Yes I reviewed the patient's medical records. Screening: Per USPSTF and CDC recommendations, given the prevalence of disease in our region, it is our hospital?s policy to screen for HIV and viral Hepatitis for all patients aged 18 and over and those with ongoing risk factors. Acrlos Inquiry Pt receiving controlled substance: No Vital Signs: 03/10/25 22:14 03/10/25 22:58 Temperature 98.1 F 98.6 F Temperature Source Oral Oral Pulse Rate 98 H Pulse Rate [Left] 107 H Respiratory Rate 22 18 Blood Pressure 114/83 Blood Pressure [Right Arm] 143/106 H Blood Pressure Mean [Right Arm] 118 Blood Pressure Source Automatic Cuff Blood Pressure Source [Right Arm] Automatic Cuff Blood Pressure Position Sitting Blood Pressure Position [Right Arm] Sitting 02 Sat by Pulse Oximetry 98 Oxygen Delivery Method Room Air Room Air Lab Data Lab results reviewed: Yes I reviewed the patient's lab results. Lab Results 03/10/25 22:10: Urine Color Yellow, Urine Appearance Clear, Urine pH 6.0, Ur Specific [place] >= 1.030, Urine Protein Negative, Urine Glucose (UA) Negative, Urine Ketones Negative, Urine Blood Negative, Urine Nitrate Negative, Urine Bilirubin Negative, Urine Urobilinogen 0.2, Ur Leukocyte Esterase Negative, Urine WBC None, Ur Squamous Epith Cells 3-5, Calcium Oxalate Crystal 1+, Urine Bacteria Trace, Urine Mucus 1+ 03/10/25 22:15: WBC 8.4, RBC 5.10, Hgb 14.7, Hct 44.7, MCV 87.6, MCH 28.8, MCHC 32.9, RDW 12.8, Plt Count 192, MPV 12.3 H, Neut % (Auto) 45.6, Lymph % (Auto) 46.3, [place] % (Auto) 6.8, Eos % (Auto) 0.7, Baso % (Auto) 0.4, Neut # (Auto) 3.9, Lymph # (Auto) 3.9, [place] # (Auto) 0.6, Eos # (Auto) 0.1, Baso # (Auto) 0.0, S odium 133 L, Potassium 3.6, Chloride 103, Carbon Dioxide 25, Anion Gap 8.6, BUN 8, Creatinine 0.90, Estimated Creat Clear 91, Estimated GFR 65, Est GFR ( Amer) 79, Glucose 127 H, Calcium 9.4, Total Bilirubin 0.9, AST 32, ALT 27, Alkaline Phosphatase 107, Total Protein 7.4, Albumin 4.7, Globulin 2.7, Albumin/Globulin Ratio 1.7, Lipase 99, HCV Ab GARCIA w/Rflx PCR Qn Negative, HIV Ag/Ab Combo Qual Negative 03/10/25 23:07: Lactate 0.9 03/10/25 22:15 03/10/25 22:15 Orders (Tests/Meds): ED MEDICATIONS Generic Name Dose Route Start Last Admin Trade Name Freq PRN Reason Stop Dose Admin Sodium Chloride 10 ml 03/10/25 23:02 03/10/25 23:03 Sodium Chloride 0.9% 10ml Syr (Rad Only) IV 04/09/25 23:01 10 ml NEEDED PRN Administration Maintain IV Site Discontinued Medications Generic Name Dose Route Start Last Admin Trade Name Freq PRN Reason Stop Dose Admin Acetaminophen 1,000 mg 03/10/25 22:24 03/10/25 22:30 Acetaminophen 1,000mg/100ml Vial IV 03/10/25 22:25 1,000 mg ONCE ONE Administration Dicyclomine HCl 10 mg 03/11/25 00:47 03/11/25 00:54 Dicyclomine 10mg Capsule PO 03/11/25 00:48 10 mg ONCE ONE Administration Lactated Ringer's 1,000 mls @ 999 mls/hr 03/10/25 22:20 03/10/25 22:28 Lactated Ringer's 1000 Ml Bag IV 03/10/25 23:20 999 mls/hr .Q1H1M ONE Administration Iopamidol 75 ml 03/10/25 23:02 03/10/25 23:03 Iopamidol-370 (76%);100ml Bottle IV 03/10/25 23:03 75 ml ONCE ONE Administration Ketorolac Tromethamine 15 mg 03/10/25 22:20 03/10/25 22:29 Ketorolac 30mg/Ml Vial IV 03/10/25 22:21 15 mg ONCE ONE Administration Morphine Sulfate 4 mg 03/10/25 22:20 03/10/25 22:29 Morphine 4mg/Ml Syringe IV 03/10/25 22:21 4 mg ONCE ONE Administration Morphine Sulfate 4 mg 03/11/25 00:47 03/11/25 00:54 Morphine 4mg/Ml Syringe IV 03/11/25 00:48 4 mg ONCE ONE Administration Ondansetron HCl 4 mg 03/10/25 22:20 03/10/25 22:28 Ondansetron 4mg/2ml Vial IV 03/10/25 22:21 4 mg ONCE ONE Administration ORDERS Category Date Time Status CT abdomen pelvis w con Stat Cat Scan 03/10/25 22:20 Completed Complete Blood Count Auto Diff Stat Lab 03/10/25 22:15 Completed Comprehensive Metabolic Panel Stat Lab 03/10/25 22:15 Completed Diarrhea 23 Panel, PCR Stat Lab 03/10/25 22:20 Ordered HIV Combo Stat Lab 03/10/25 22:15 Completed Hepatitis C Ab Qual. W/ RFX Stat Lab 03/10/25 22:15 Completed Lactic Acid Stat Lab 03/10/25 23:07 Completed Lipase Stat Lab 03/10/25 22:15 Completed UA [Urinalysis and Microscopic] Stat Lab 03/10/25 22:10 Completed Medical Decision Narrative: In summary, this patient is a 55-year-old female presenting to the Emergency Department for evaluation of severe right sided abdominal pain, nausea, acidic/burning diarrhea, urinary frequency with small amounts of urine. Differential diagnoses considered include but are not limited to colitis, appendicitis, cystitis, pyelonephritis, ureterolithiasis, pancreatitis. Ruling out the most morbid conditions drove assessment. It should be noted patient's history includes hypothyroidism which may or may not be at goal therapy. This complicates all aspects of care by increasing patient's risk for morbidity. On exam, the patient is uncomfortable appearing, pacing around the room. She has right upper quadrant abdominal tenderness with no rebound, rigidity, or guarding. She is tachycardic and hypertensive in the setting of severe pain. workup included CBC, CMP, lipase, lactic acid, urinalysis, CT abdomen pelvis with IV contrast. I ordered a diarrhea panel as well. Patient was given a bolus of IV fluids as well as IV morphine, Zofran, Toradol, acetaminophen for symptomatic improvement. Patient care signed out to the oncoming provider, Dr. Cueto. <Reese Cueto MD - Last Filed: 03/11/25 01:26> Vital Signs: 03/10/25 22:14 03/10/25 22:58 Temperature 98.1 F 98.6 F Temperature Source Oral Oral Pulse Rate 98 H Pulse Rate [Left] 107 H Respiratory Rate 22 18 Blood Pressure 114/83 Blood Pressure [Right Arm] 143/106 H Blood Pressure Mean [Right Arm] 118 Blood Pressure Source Automatic Cuff Blood Pressure Source [Right Arm] Automatic Cuff Blood Pressure Position Sitting Blood Pressure Position [Right Arm] Sitting 02 Sat by Pulse Oximetry 98 Oxygen Delivery Method Room Air Room Air Lab Data Lab Results 03/10/25 22:10: Urine Color Yellow, Urine Appearance Clear, Urine pH 6.0, Ur Specific [place] >= 1.030, Urine Protein Negative, Urine Glucose (UA) Negative, Urine Ketones Negative, Urine Blood Negative, Urine Nitrate Negative, Urine Bilirubin Negative, Urine Urobilinogen 0.2, Ur Leukocyte Esterase Negative, Urine WBC None, Ur Squamous Epith Cells 3-5, Calcium Oxalate Crystal 1+, Urine Bacteria Trace, Urine Mucus 1+ 03/10/25 22:15: WBC 8.4, RBC 5.10, Hgb 14.7, Hct 44.7, MCV 87.6, MCH 28.8, MCHC 32.9, RDW 12.8, Plt Count 192, MPV 12.3 H, Neut % (Auto) 45.6, Lymph % (Auto) 46.3, [place] % (Auto) 6.8, Eos % (Auto) 0.7, Baso % (Auto) 0.4, Neut # (Auto) 3.9, Lymph # (Auto) 3.9, [place] # (Auto) 0.6, Eos # (Auto) 0.1, Baso # (Auto) 0.0, S odium 133 L, Potassium 3.6, Chloride 103, Carbon Dioxide 25, Anion Gap 8.6, BUN 8, Creatinine 0.90, Estimated Creat Clear 91, Estimated GFR 65, Est GFR ( Amer) 79, Glucose 127 H, Calcium 9.4, Total Bilirubin 0.9, AST 32, ALT 27, Alkaline Phosphatase 107, Total Protein 7.4, Albumin 4.7, Globulin 2.7, Albumin/Globulin Ratio 1.7, Lipase 99, HCV Ab GARCIA w/Rflx PCR Qn Negative, HIV Ag/Ab Combo Qual Negative 03/10/25 23:07: Lactate 0.9 Orders (Tests/Meds): ED MEDICATIONS Generic Name Dose Route Start Last Admin Trade Name Freq PRN Reason Stop Dose Admin Sodium Chloride 10 ml 03/10/25 23:02 03/10/25 23:03 Sodium Chloride 0.9% 10ml Syr (Rad Only) IV 04/09/25 23:01 10 ml NEEDED PRN Administration Maintain IV Site Discontinued Medications Generic Name Dose Route Start Last Admin Trade Name Freq PRN Reason Stop Dose Admin Acetaminophen 1,000 mg 03/10/25 22:24 03/10/25 22:30 Acetaminophen 1,000mg/100ml Vial IV 03/10/25 22:25 1,000 mg ONCE ONE Administration Dicyclomine HCl 10 mg 03/11/25 00:47 03/11/25 00:54 Dicyclomine 10mg Capsule PO 03/11/25 00:48 10 mg ONCE ONE Administration Lactated Ringer's 1,000 mls @ 999 mls/hr 03/10/25 22:20 03/10/25 22:28 Lactated Ringer's 1000 Ml Bag IV 03/10/25 23:20 999 mls/hr .Q1H1M ONE Administration Iopamidol 75 ml 03/10/25 23:02 03/10/25 23:03 Iopamidol-370 (76%);100ml Bottle IV 03/10/25 23:03 75 ml ONCE ONE Administration Ketorolac Tromethamine 15 mg 03/10/25 22:20 03/10/25 22:29 Ketorolac 30mg/Ml Vial IV 03/10/25 22:21 15 mg ONCE ONE Administration Morphine Sulfate 4 mg 03/10/25 22:20 03/10/25 22:29 Morphine 4mg/Ml Syringe IV 03/10/25 22:21 4 mg ONCE ONE Administration Morphine Sulfate 4 mg 03/11/25 00:47 03/11/25 00:54 Morphine 4mg/Ml Syringe IV 03/11/25 00:48 4 mg ONCE ONE Administration Ondansetron HCl 4 mg 03/10/25 22:20 03/10/25 22:28 Ondansetron 4mg/2ml Vial IV 03/10/25 22:21 4 mg ONCE ONE Administration ORDERS Category Date Time Status CT abdomen pelvis w con Stat Cat Scan 03/10/25 22:20 Completed Complete Blood Count Auto Diff Stat Lab 03/10/25 22:15 Completed Comprehensive Metabolic Panel Stat Lab 03/10/25 22:15 Completed Diarrhea 23 Panel, PCR Stat Lab 03/10/25 22:20 Ordered HIV Combo Stat Lab 03/10/25 22:15 Completed Hepatitis C Ab Qual. W/ RFX Stat Lab 03/10/25 22:15 Completed Lactic Acid Stat Lab 03/10/25 23:07 Completed Lipase Stat Lab 03/10/25 22:15 Completed UA [Urinalysis and Microscopic] Stat Lab 03/10/25 22:10 Completed Medical Decision Narrative: In summary, this patient is a 55-year-old female presenting to the Emergency Department for evaluation of severe right sided abdominal pain, nausea, acidic/burning diarrhea, urinary frequency with small amounts of urine. Differential diagnoses considered include but are not limited to colitis, appendicitis, cystitis, pyelonephritis, ureterolithiasis, pancreatitis. Ruling out the most morbid conditions drove assessment. It should be noted patient's history includes hypothyroidism which may or may not be at goal therapy. This complicates all aspects of care by increasing patient's risk for morbidity. On exam, the patient is uncomfortable appearing, pacing around the room. She has right upper quadrant abdominal tenderness with no rebound, rigidity, or guarding. She is tachycardic and hypertensive in the setting of severe pain. workup included CBC, CMP, lipase, lactic acid, urinalysis, CT abdomen pelvis with IV contrast. I ordered a diarrhea panel as well. Patient was given a bolus of IV fluids as well as IV morphine, Zofran, Toradol, acetaminophen for symptomatic improvement. Patient care signed out to the oncoming provider, Dr. Cueto. Rom MORE: I assumed care of the patient at the time of handoff from the prior provider. On reassessment patient reports return of pain, given additional 4 mg of morphine and some Bentyl with improvement in symptoms. Labs results independently interpreted by me show no leukocytosis, no significant electrolyte derangement, urine without evidence of infection. CT imaging was independently interpreted by me and shows some distention of the stomach and proximal duodenum, no evidence of kidney stone or lower abdominal pathology. Colectomy stable from prior image. Extensive interactive discussion was had with patient and family regarding her presentation. There is no evidence of emergent surgical pathology or other serious pathology at this time. the underlying etiology of patient's pain remains unclear however. Given she has had a change in the character of her stools, I think it may be GI in nature. She is unable to give us a stool sample here but she was discharged with a stool collection kit and an outpatient order. She was discharged prescription for Zofran and Bentyl and given return precautions. Critical Care <Elaina Cam, DO - Last Filed: 03/10/25 22:33> Critical Care Time Critical Care Time: No
[2025-03-10 22:24] LABS: Microscopic, Urine URINE MICROSCOPIC (MICROSCOPIC)
[2025-03-10 22:27] LABS: Appearance,Urine CLEAR (Clear); Bilirubin,Urine Negative (Negative); Blood, Urine Negative (Negative); Color,Urine YELLOW (Yellow); Glucose,Urine (UA) Negative (Negative); Ketones,Urine Negative (Negative); Leukocyte Esterase,Urine Negative (Negative); Nitrate,Urine Negative (Negative); Protein,Urine Negative (Negative); Specific Gravity, Urine >= 1.030 (1.005-1.030); Urobilinogen,Urine 0.2 EU/dl (0.2)
[2025-03-10] MEDS: LACTATED RINGERS 1000ML 1,000 ML 999 ML IV (22:28)
[2025-03-10] MEDS: ONDANSETRON 4MG/2ML VIAL 4 MG IV (22:28)
[2025-03-10] MEDS: KETOROLAC 30MG/ML VIAL 15 MG IV (22:29)
[2025-03-10] MEDS: MORPHINE 4MG/ML SYRINGE 4 MG IV (22:29)
[2025-03-10 22:30] LABS: Albumin Level 4.7 g/dl (3.5-5.0); Chloride 103 mmol/L (98-107); Potassium 3.6 mmoL/L (3.5-5.1); Sodium 133 mmol/L (136-145)
[2025-03-10] MEDS: ACETAMINOPHEN 1,000MG/100ML VIAL 1000 MG IV (22:30)
[2025-03-10 22:32] LABS: Blood Urea Nitrogen 8 mg/dl (7-17); Creatinine Clearance Estimated 91 mL/min (50-200); Estimated Glomerular Filt Rate 65 ml/min (>60); GFR (African American) 79 ML/MIN (>60)
[2025-03-10 22:33] LABS: Alanine Aminotransferase 27 U/L (12-78); Albumin/Globulin Ratio 1.7 (1.1-1.8); Alkaline Phosphatase 107 U/L (38-126); Anion Gap 8.6 mEq/L (5-15); Aspartate Amino Transferase 32 U/L (14-36); Bilirubin,Total 0.9 mg/dl (0.2-1.3); Calcium 9.4 mg/dl (8.4-10.2); Carbon Dioxide 25 mmol/L (22.0-30.0); Globulin 2.7 g/dL (1.3-3.2); Glucose 127 mg/dl (74-100); Lipase 99 U/L (23-300); Total Protein,Serum 7.4 g/dl (6.3-8.2)
[2025-03-10 22:39] LABS: Basophils % 0.4 % (0.1-2.0); Eosinophils # 0.1 Kmm3 (0.0-0.4); Eosinophils % 0.7 % (0.1-12.0); Hematocrit 44.7 % (37.0-47.0); Hemoglobin 14.7 g/dL (12.2-16.2); Immature Granulocytes # 0.02 10^3uL; Immature Granulocytes % 0.2 %; Lymphocytes # 3.9 K/mm3 (0.7-4.5); Lymphocytes % 46.3 % (10-50); Mean Corpuscular HGB Conc 32.9 g/dL (31.8-35.4); Mean Corpuscular Hemoglobin 28.8 pg (27.0-31.2); Mean Corpuscular Volume 87.6 fl (81-99); Mean Platelet Volume 12.3 fl (7.4-10.4); Monocytes # 0.6 K/mm3 (0.1-1.0); Monocytes % 6.8 % (1.7-9.3); Neutrophils # 3.9 K/mm3 (1.8-7.8); Neutrophils % 45.6 % (37.0-80.0); Nucleated Red Blood Cells # 0 10^3/uL; Nucleated Red Blood Cells % 0 %; Platelet Count 192 K/mm3 (142-424); Red Cell Distribution Width 12.8 % (11.5-17.5); Red Cell Distribution Width-SD 41.6 fL; White Blood Count 8.4 K/mm3 (4.8-10.8)
[2025-03-10 22:42] LABS: Calcium Oxalate Crystals,Urine 1+ /lpf; Mucus,Urine 1+ /lpf
[2025-03-10 22:43] LABS: Bacteria,Urine Trace /lpf
[2025-03-10 22:58] VITALS: BP 114/83; PULSE 98; RESP 18; TEMP 37
[2025-03-10] MEDS: IOPAMIDOL-370 (76%);100ML BOTTLE 75 ML IV (23:03)
[2025-03-10] MEDS: SODIUM CHLORIDE 0.9% 10ML SYR (RAD ONLY) 10 ML IV (23:03)
[2025-03-10 23:27] LABS: Lactic Acid 0.9 mmol/L (0.7-2.1)
[2025-03-10 23:33] LABS: HIV Combo NEGATIVE (Negative)
[2025-03-10 23:40] LABS: Hepatitis C Ab Qual. W/ RFX NEGATIVE (Negative)
[2025-03-11] MEDS: MORPHINE 4MG/ML SYRINGE 4 MG IV (00:54)
[2025-03-11] MEDS: DICYCLOMINE 10MG CAPSULE 10 MG PO (00:54)
[2025-03-11 01:26] VITALS: BP 131/82; PULSE 95; RESP 18; TEMP 36.9; O2SAT 98
--- NOTE | 2025-03-12 06:06 | PC.NURSE ---
Spoke to pt and advised her of the need for abx and follow-up w/ PCP per Dr. Baker
== END 2025-03-11 01:27 | disposition home or self-care (01) ==
PROVIDERS: Emergency Medicine; Emergency Provider Emergency Medicine
DX: R10.11 Right upper quadrant pain (principal); R11.0 Nausea; R00.0 Tachycardia, unspecified; Z90.49 Acquired absence of other specified parts of digestive tract; Z11.59 Encounter for screening for other viral diseases; Z11.4 Encounter for screening for human immunodeficiency virus [HIV]
CPT/HCPCS: 74177; 80053; 81001; 83605; 83690; 85025; 86803; 87389; 96361; 96374; 96375; 96376; 99285; J0131; J1885; J2270; J2405; J7120; Q9967

== ENCOUNTER 2025-03-11 12:32 | Outpatient (CLI) | payer BC, SELFPAY ==
[2025-03-11 12:41] LABS: Adenovirus F 40/41, stool Not Detected (NotDetected); Astrovirus Not Detected (NotDetected); Campylobacter Not Detected (NotDetected); Cryptosporidium Not Detected (NotDetected); Cyclospora Cayetanesis Not Detected (NotDetected); Entamoeba histolytica Not Detected (NotDetected); Enteroaggregative E coli Not Detected (NotDetected); Enteropathogenic E coli Not Detected (NotDetected); Enterotoxigenic E coli Not Detected (NotDetected); Giardia lamblia Not Detected (NotDetected); Norovirus Not Detected (NotDetected); Plesimonas Shigalloides, PCR Not Detected (NotDetected); Rotavirus A Not Detected (NotDetected); Salmonella, PCR Not Detected (NotDetected); Sapovirus Not Detected (NotDetected); Shiga-like toxin E coli Not Detected (NotDetected); Shigella Enterovasive E coli Not Detected (NotDetected); Vibrio Cholerae Not Detected (NotDetected); Vibrio, PCR Not Detected (NotDetected); Yersinia Entercolitica, PCR Not Detected (NotDetected)
[2025-03-11 15:06] LABS: Clostridium Difficile A/B, PCR Detected (NotDetected)
== END 2025-03-11 23:59 | disposition home or self-care (01) ==
LOC: LAB.DROPOF 12:33
PROVIDERS: Emergency Medicine; Visit Provider Emergency Medicine
DX: R10.31 Right lower quadrant pain (principal)
CPT/HCPCS: 87507